=== PATIENT | female | born 1985 | race African-American/Black ===

== ENCOUNTER 2020-10-10 01:10 | Inpatient (IN) | payer MEDICAID ==
[~2020-10-10] VITALS: Ht 170.2 cm; Wt 112.3 kg
[2020-10-10 02:22] LABS: Basophils # (auto) 0.1 10 ^3/uL (0-0.2); Basophils % (auto) 1.3 % (0.0-2.0); Eosinophils # (auto) 0.1 10 ^3/uL (0-0.8); Eosinophils % (auto) 2.5 % (0.0-7.0); Hematocrit 37.6 % (36.0-46.0); Hemoglobin 11.8 g/dL (12.2-16.2); Lymphocytes # (auto) 2.5 10 ^3/uL (0.4-5.4); Lymphocytes % (auto) 48.6 % (10.0-50.0); Mean Corpuscular Hemoglobin 27.2 pg (28.0-32.0); Mean Corpuscular Hgb Conc. 31.5 g/dL (32.0-36.0); Mean Corpuscular Volume 86.4 fL (80.0-100.0); Monocytes # (auto) 0.2 10 ^3/uL (0-1.3); Monocytes % (auto) 4.5 % (0.0-12.0); Neutrophils # (auto) 2.2 10 ^3/uL (1.6-8.6); Neutrophils % (auto) 43.1 % (37.0-80.0); Nucleated Red Blood Cells % 0.3 %; Platelet Count (auto) 269 10^3/uL (140-450); Red Blood Cells 4.35 10^6/uL (4.0-5.20); Red Cell Distribution Width 18.6 % (11.8-14.3); White Blood Cell 5.1 10^3/uL (4.4-10.8)
[2020-10-10 02:25] LABS: Albumin 2.7 g/dL (3.4-5.0); BUN/Creatinine Ratio 20.9; Potassium 3.8 mmol/L (3.5-5.1)
[2020-10-10 02:30] LABS: Bilirubin, Total 2.1 mg/dL (0.2-1.0); Total Protein 6.5 g/dL (6.4-8.2)
[2020-10-10 02:33] LABS: INR 1.6 (0.9-1.15); Partial Thromboplastin Time 26.3 sec (23.0-31.2)
[2020-10-10] MEDS ORDERED: FUROSEMIDE 40 MG/4 ML VIAL IV ONE (03:30)
[2020-10-10 03:46] LABS: Urine Bacteria MOD /hpf (None Seen); Urine Blood Negative /uL (Negative); Urine Mucus FEW (None Seen); Urine Specific Gravity 1.022 (1.001-1.035); Urine WBC 55 /hpf (0 - 5)
[2020-10-10] MEDS ORDERED: ONDANSETRON HCL 4 MG/2 ML VIAL IV ONE (05:00)
[2020-10-10] MEDS ORDERED: MORPHINE SULF INJ 2 MG/ML SYRINGE 1ML IV ONE (05:00)
[2020-10-10] MEDS ORDERED: cefTRIAXone SOD 1,000 MG VL IV ONE (05:15)
[2020-10-10] MEDS ORDERED: cefTRIAXone 1GM/50ML D5W 50 ML IV ONE (05:45)
[2020-10-10] MEDS ORDERED: NITROGLYCERIN 0.4 MG SL TAB SL PRN (07:45)
[2020-10-10] MEDS ORDERED: MORPHINE SULF INJ 2 MG/ML SYRINGE 1ML IV PRN (07:45)
[2020-10-10] MEDS ORDERED: FUROSEMIDE 40 MG/4 ML VIAL IV SCH (08:03)
[2020-10-10 08:41] LABS: Basophils # (auto) 0.1 10 ^3/uL (0-0.2); Basophils % (auto) 1.3 % (0.0-2.0); Eosinophils # (auto) 0 10 ^3/uL (0-0.8); Eosinophils % (auto) 0.9 % (0.0-7.0); Hematocrit 35.2 % (36.0-46.0); Hemoglobin 11.4 g/dL (12.2-16.2); Lymphocytes # (auto) 1.7 10 ^3/uL (0.4-5.4); Lymphocytes % (auto) 40.1 % (10.0-50.0); Mean Corpuscular Hemoglobin 28.1 pg (28.0-32.0); Mean Corpuscular Hgb Conc. 32.4 g/dL (32.0-36.0); Mean Corpuscular Volume 86.8 fL (80.0-100.0); Monocytes # (auto) 0.3 10 ^3/uL (0-1.3); Monocytes % (auto) 6.8 % (0.0-12.0); Neutrophils # (auto) 2.1 10 ^3/uL (1.6-8.6); Neutrophils % (auto) 50.9 % (37.0-80.0); Nucleated Red Blood Cells % 0.3 %; Platelet Count (auto) 222 10^3/uL (140-450); Red Blood Cells 4.06 10^6/uL (4.0-5.20); Red Cell Distribution Width 18.8 % (11.8-14.3); White Blood Cell 4.2 10^3/uL (4.4-10.8)
[2020-10-10 08:55] LABS: Albumin 2.5 g/dL (3.4-5.0); Calcium 8.3 mg/dL (8.5-10.1); Magnesium 1.6 mg/dL (1.6-2.6); Potassium 3.5 mmol/L (3.5-5.1)
[2020-10-10 08:58] LABS: BUN/Creatinine Ratio 20.5; Bilirubin, Total 2.2 mg/dL (0.2-1.0)
[2020-10-10] MEDS ORDERED: POTASSIUM EFFERVESENT TAB 25 MEQ PO ONE (09:45)
[2020-10-10 10:00] VITALS: BP 137/89
[2020-10-10] MEDS ORDERED: LISINOPRIL 10 MG TAB PO SCH (10:00)
[2020-10-10] MEDS: POTASSIUM CHL 20 Meq TABLET PO SCH ×2 (10:51→22:34)
[2020-10-10 13:00] VITALS: BP 106/81
[2020-10-10] MEDS: HYDROcodone-ACET 5/325MG TAB PO PRN (14:58)
[2020-10-10] MEDS ORDERED: metOLazone 5 MG TAB PO ONE (15:45)
[2020-10-10] MEDS ORDERED: ASPI-543 PO (16:25)
[2020-10-10] MEDS ORDERED: ATOR20TA50 PO (16:25)
[2020-10-10] MEDS ORDERED: METO-169 PO (16:25)
[2020-10-10] MEDS ORDERED: FURO40TA4 PO (16:25)
[2020-10-10] MEDS ORDERED: LISI-275 PO (16:25)
[2020-10-10] MEDS ORDERED: POTA10TA51 PO (16:25)
[2020-10-10 17:00] VITALS: BP 93/74
[2020-10-10] MEDS: FUROSEMIDE 40 MG/4 ML VIAL IV SCH (17:53)
[2020-10-10] MEDS: CARVEDILOL 3.125 MG TAB PO SCH (22:34)
[2020-10-10 22:37] VITALS: BP 105/71
[2020-10-10 23:27] LABS: Alcohol, Urine < 3.0 mg/dL (0-10); Amphetamine Screen, Urine NEGATIVE (NEGATIVE); Barbiturate Scree,Urine NEGATIVE (NEGATIVE); Benzodiazephine Screen, Urine NEGATIVE (NEGATIVE); Cannabinoid Screen, Urine NEGATIVE (NEGATIVE); Cocaine Screen, Urine NEGATIVE (NEGATIVE); Opiate Scree,Urine NEGATIVE (NEGATIVE); Phencyclidine Screen, Urine NEGATIVE (NEGATIVE)
[2020-10-11 04:58] VITALS: BP 119/73
[2020-10-11] MEDS: FUROSEMIDE 40 MG/4 ML VIAL IV SCH ×2 (06:02→17:50)
[2020-10-11 09:00] VITALS: BP 130/77
[2020-10-11] MEDS: cefTRIAXone 1GM/50ML D5W 50 ML IV SCH (09:03)
[2020-10-11] MEDS: CARVEDILOL 3.125 MG TAB PO SCH ×2 (09:04→22:11)
[2020-10-11] MEDS: POTASSIUM CHL 20 Meq TABLET PO SCH ×2 (09:04→22:11)
[2020-10-11 09:18] LABS: Basophils # (auto) 0.1 10 ^3/uL (0-0.2); Basophils % (auto) 1.4 % (0.0-2.0); Eosinophils # (auto) 0.2 10 ^3/uL (0-0.8); Eosinophils % (auto) 4.3 % (0.0-7.0); Hematocrit 33.2 % (36.0-46.0); Hemoglobin 10.8 g/dL (12.2-16.2); Lymphocytes # (auto) 1.6 10 ^3/uL (0.4-5.4); Mean Corpuscular Hemoglobin 28.1 pg (28.0-32.0); Mean Corpuscular Hgb Conc. 32.6 g/dL (32.0-36.0); Mean Corpuscular Volume 86.1 fL (80.0-100.0); Monocytes # (auto) 0.3 10 ^3/uL (0-1.3); Monocytes % (auto) 7.6 % (0.0-12.0); Neutrophils # (auto) 2.1 10 ^3/uL (1.6-8.6); Neutrophils % (auto) 48.7 % (37.0-80.0); Nucleated Red Blood Cells % 0.3 %; Platelet Count (auto) 212 10^3/uL (140-450); Red Blood Cells 3.85 10^6/uL (4.0-5.20); Red Cell Distribution Width 19.1 % (11.8-14.3); White Blood Cell 4.2 10^3/uL (4.4-10.8)
[2020-10-11 09:28] LABS: Anion Gap 8 (5-15); Calcium 8.3 mg/dL (8.5-10.1); Carbon Dioxide 28 mmol/L (21-32); Chloride 103 mmol/L (98-107); Glucose 101 mg/dL (74-106); Potassium 3.5 mmol/L (3.5-5.1); Sodium 139 mmol/L (136-145)
[2020-10-11 09:31] LABS: INR 1.4 (0.9-1.15)
[2020-10-11 09:39] LABS: BUN/Creatinine Ratio 24.1; Blood Urea Nitrogen 20 mg/dL (7-18); GFR African American 100 mL/min; GFR Non-African American 83 mL/min
[2020-10-11 13:00] VITALS: BP 121/79
[2020-10-11 17:00] VITALS: BP 111/71
[2020-10-11 22:00] VITALS: BP 124/79
[2020-10-11] MEDS: MAGNESIUM OXIDE 400 MG TAB PO SCH (22:11)
[2020-10-11] MEDS: SACUBITRIL-VALSARTAN 24mg/26mg TAB PO SCH (22:11)
[2020-10-12] MEDS: HYDROcodone-ACET 5/325MG TAB PO PRN (03:15)
[2020-10-12 05:00] VITALS: BP 98/75
[2020-10-12] MEDS: FUROSEMIDE 40 MG/4 ML VIAL IV SCH (06:00)
[2020-10-12 08:40] VITALS: BP 110/67
[2020-10-12] MEDS: cefTRIAXone 1GM/50ML D5W 50 ML IV SCH (09:36)
[2020-10-12] MEDS: CARVEDILOL 3.125 MG TAB PO SCH (09:37)
[2020-10-12] MEDS: SACUBITRIL-VALSARTAN 24mg/26mg TAB PO SCH (09:37)
[2020-10-12] MEDS: POTASSIUM CHL 20 Meq TABLET PO SCH (09:38)
[2020-10-12] MEDS: MAGNESIUM OXIDE 400 MG TAB PO SCH (09:38)
[2020-10-12 12:48] VITALS: BP 106/64
[2020-10-12] MEDS ORDERED: MAGN241.4 PO (13:59)
[2020-10-12] MEDS ORDERED: CAR3125T PO (13:59)
[2020-10-12] MEDS ORDERED: SACU1TAB PO (13:59)
[2020-10-12] MEDS ORDERED: ALBUAER3 IN (14:00)
[2020-10-12] MEDS ORDERED: ALPR0.25 PO (14:24)
[2020-10-12 17:00] VITALS: BP 112/76
[2020-10-24] MEDS ORDERED: IBUP200C3 PO (10:42)
[2020-10-24] MEDS ORDERED: HYDR1TAB97 PO (10:42)
[2020-10-24] MEDS ORDERED: SACU1TAB PO (17:26)
[2020-10-24] MEDS ORDERED: METO5TAB56 PO (17:26)
[2020-10-24] MEDS ORDERED: FURO40TA4 PO (17:26)
== END 2020-10-12 17:42 | disposition home or self-care (01) | DRG 194 ==
LOC: ER 01:20 → EDBD 01:20 → TELE 01:21 → OBSVTOIN 01:21 → TELE-EAST 10:32
PROVIDERS: ADMIT Hospitalist; ATTEND Hospitalist
DX: I50.43 Acute on chronic combined systolic (congestive) and diastolic (congestive) heart failure (principal); R64 Cachexia; E66.9 Obesity, unspecified; F41.9 Anxiety disorder, unspecified; I42.9 Cardiomyopathy, unspecified; Z20.822 Contact with and (suspected) exposure to COVID-19; Z82.49 Family history of ischemic heart disease and other diseases of the circulatory system; Z95.810 Presence of automatic (implantable) cardiac defibrillator; Z68.36 Body mass index [BMI] 36.0-36.9, adult
CPT/HCPCS: 36415; 51702; 71045; 80048; 80053; 80307; 81001; 83735; 83880; 84484; 84702; 85025; 85610; 85730; 87086; 87426; 93005; 93306; 96365; 96366; 96375; G0378; G0463; J0696; J2405

== ENCOUNTER 2021-03-06 22:10 | Inpatient (IN) | payer MEDICAID ==
[~2021-03-06] VITALS: Ht 175.3 cm; Wt 114.0 kg
[~2021-03-06 22:10] MED LIST: ALBUAER3 IN; ASPI-543 PO; ATOR20TA50 PO; CAR3125T PO; FURO40TA4 PO; HYDR1TAB97 PO; IBUP200C3 PO; MAGN241.4 PO; METO5TAB5 PO; POTA10TA51 PO; SACU1TAB PO
[2021-03-06] MEDS ORDERED: FUROSEMIDE 100 MG/10ML VIAL IV ONE (23:00)
[2021-03-06] MEDS ORDERED: SPIRONOLACTONE 25 MG TAB PO ONE (23:00)
[2021-03-06 23:19] LABS: Basophils # (auto) 0.1 10 ^3/uL (0-0.2); Basophils % (auto) 1.3 % (0.0-2.0); Eosinophils # (auto) 0.1 10 ^3/uL (0-0.8); Eosinophils % (auto) 2.4 % (0.0-7.0); Hematocrit 33.3 % (36.0-46.0); Hemoglobin 10.9 g/dL (12.2-16.2); Lymphocytes # (auto) 1.3 10 ^3/uL (0.4-5.4); Lymphocytes % (auto) 29.3 % (10.0-50.0); Mean Corpuscular Hemoglobin 27.4 pg (28.0-32.0); Mean Corpuscular Hgb Conc. 32.7 g/dL (32.0-36.0); Mean Corpuscular Volume 83.9 fL (80.0-100.0); Monocytes # (auto) 0.4 10 ^3/uL (0-1.3); Monocytes % (auto) 8.8 % (0.0-12.0); Neutrophils # (auto) 2.7 10 ^3/uL (1.6-8.6); Neutrophils % (auto) 58.2 % (37.0-80.0); Nucleated Red Blood Cells % 0.2 %; Red Blood Cells 3.97 10^6/uL (4.0-5.20); White Blood Cell 4.6 10^3/uL (4.4-10.8)
[2021-03-06 23:33] LABS: Albumin 2.5 g/dL (3.4-5.0); Calcium 8.6 mg/dL (8.5-10.1); Potassium 3.2 mmol/L (3.5-5.1)
[2021-03-06 23:39] LABS: BUN/Creatinine Ratio 19.5; Bilirubin, Total 1.8 mg/dL (0.2-1.0); Total Protein 6.7 g/dL (6.4-8.2)
[2021-03-06] MEDS ORDERED: IOHEXOL 300 MG/ML 100ML BOTTLE IJ ONE (23:58)
[2021-03-07 01:10] LABS: Amphetamine Screen, Urine POSITIVE (NEGATIVE); Barbiturate Scree,Urine NEGATIVE (NEGATIVE); Cannabinoid Screen, Urine POSITIVE (NEGATIVE)
[2021-03-07 01:18] LABS: Benzodiazephine Screen, Urine NEGATIVE (NEGATIVE); Cocaine Screen, Urine NEGATIVE (NEGATIVE); Opiate Scree,Urine NEGATIVE (NEGATIVE); Phencyclidine Screen, Urine NEGATIVE (NEGATIVE)
[2021-03-07] MEDS ORDERED: POTASSIUM CHL 20 Meq TABLET PO ONE (01:30)
[2021-03-07] MEDS ORDERED: HEPARIN SODIUM (PORCINE) 5000 UNITS/ML 1ML VIAL IV ONE (02:30)
[2021-03-07] MEDS ORDERED: levoFLOXacin 500MG 100 ML IV ONE (02:30)
[2021-03-07] MEDS ORDERED: HEPARIN DRIP/D5W 100UNITS/ML 250 ML IV SCH (02:30)
[2021-03-07 03:00] LABS: Urine Bacteria FEW /hpf (None Seen); Urine Blood Negative /uL (Negative); Urine Hyaline Cast FEW /lpf (0 - 2); Urine Mucus FEW (None Seen); Urine Specific Gravity 1.028 (1.001-1.035); Urine WBC 1 /hpf (0 - 5)
[2021-03-07 03:46] LABS: INR 1.51 (0.9-1.15)
[2021-03-07] MEDS ORDERED: ONDANSETRON HCL 4 MG/2 ML VIAL IV PRN (04:45)
[2021-03-07] MEDS ORDERED: ACETAMINOPHEN 325 MG TAB PO PRN (04:45)
[2021-03-07] MEDS ORDERED: MORPHINE SULFATE INJECTION 2 MG/ML SYRG IV PRN (04:45)
[2021-03-07] MEDS: FUROSEMIDE 40 MG/4 ML VIAL IV SCH ×2 (09:53→22:22)
[2021-03-07] MEDS ORDERED: SPIRONOLACTONE 25 MG TAB PO SCH (10:00)
[2021-03-07] MEDS ORDERED: ALBUTEROL SULF HFA 90MCG INH 200DOSE IN PRN (10:30)
[2021-03-07] MEDS: ALBUMIN 25% 50 ML IV SCH ×2 (10:43→17:36)
[2021-03-07] MEDS: LORazepam 2MG/ML-1ML VIAL IV PRN (10:44)
[2021-03-07 12:42] LABS: INR 1.51 (0.9-1.15); Partial Thromboplastin Time 68.5 sec (23.6-33.0)
[2021-03-07] MEDS: HYDROcodone-ACET 5/325MG TAB PO PRN (21:45)
[2021-03-07] MEDS: ATORVASTATIN 20 MG TAB PO SCH (22:22)
[2021-03-07] MEDS: MAGNESIUM OXIDE 400 MG TAB PO SCH (22:23)
[2021-03-07] MEDS: SACUBITRIL-VALSARTAN 24mg/26mg TAB PO SCH (22:40)
[2021-03-08] MEDS: ALBUMIN 25% 50 ML IV SCH (02:12)
[2021-03-08] MEDS: FUROSEMIDE 40 MG/4 ML VIAL IV SCH ×2 (08:33→21:38)
[2021-03-08] MEDS: MAGNESIUM OXIDE 400 MG TAB PO SCH ×2 (08:33→21:38)
[2021-03-08] MEDS: SACUBITRIL-VALSARTAN 24mg/26mg TAB PO SCH ×2 (08:34→21:38)
[2021-03-08] MEDS: metOLazone 5 MG TAB PO SCH (08:34)
[2021-03-08] MEDS: ATORVASTATIN 20 MG TAB PO SCH (21:38)
[2021-03-08] MEDS: HYDROcodone-ACET 5/325MG TAB PO PRN (21:39)
[2021-03-09] MEDS: FUROSEMIDE 40 MG/4 ML VIAL IV SCH ×2 (08:52→21:36)
[2021-03-09] MEDS: SACUBITRIL-VALSARTAN 24mg/26mg TAB PO SCH ×2 (08:52→21:36)
[2021-03-09] MEDS: MAGNESIUM OXIDE 400 MG TAB PO SCH ×2 (08:53→21:37)
[2021-03-09] MEDS: metOLazone 5 MG TAB PO SCH (08:54)
[2021-03-09 09:41] LABS: Hematocrit 33.5 % (36.0-46.0); Hemoglobin 10.9 g/dL (12.2-16.2); Mean Corpuscular Hemoglobin 27.3 pg (28.0-32.0); Mean Corpuscular Hgb Conc. 32.5 g/dL (32.0-36.0); Mean Corpuscular Volume 84.1 fL (80.0-100.0); Red Blood Cells 3.99 10^6/uL (4.0-5.20); Red Cell Distribution Width 19.5 % (11.8-14.3); White Blood Cell 3.7 10^3/uL (4.4-10.8)
[2021-03-09 09:48] LABS: Band Neutrophils % (manual) 0; Basophils % (manual) 0 (0.0-2.0); Metamyelocytes % 0; Myelocytes % 0
[2021-03-09 09:49] LABS: Blast Cells 0; Promyelocytes % 0; Reactive Lymphocytes 0
[2021-03-09 09:58] LABS: Albumin 2.3 g/dL (3.4-5.0); Albumin 2.4 g/dL (3.4-5.0); Bilirubin, Direct 1.1 mg/dL (0-0.2); Calcium 8.5 mg/dL (8.5-10.1); Potassium 3.7 mmol/L (3.5-5.1)
[2021-03-09 10:01] LABS: Bilirubin, Total 1.7 mg/dL (0.2-1.0); INR 1.44 (0.9-1.15); Partial Thromboplastin Time 28.7 sec (23.6-33.0); Total Protein 6.5 g/dL (6.4-8.2)
[2021-03-09 10:02] LABS: BUN/Creatinine Ratio 19.8; Bilirubin, Total 1.8 mg/dL (0.2-1.0); Total Protein 6.5 g/dL (6.4-8.2)
[2021-03-09 11:21] LABS: Eosinophils % (manual) 3 (0-7); Lymphocytes % (manual) 46 (10.0-50.0); Monocytes % (manual) 3 (0-12)
[2021-03-09] MEDS: LORazepam 2MG/ML-1ML VIAL IV PRN (20:20)
[2021-03-09] MEDS: ATORVASTATIN 20 MG TAB PO SCH (21:36)
[2021-03-10 09:00] VITALS: BP 116/76
[2021-03-10] MEDS ORDERED: ALBUMIN 25% 50 ML IV ONE (09:30)
[2021-03-10] MEDS: FUROSEMIDE 40 MG/4 ML VIAL IV SCH (10:47)
[2021-03-10] MEDS: SACUBITRIL-VALSARTAN 24mg/26mg TAB PO SCH (10:47)
[2021-03-10] MEDS: metOLazone 5 MG TAB PO SCH (10:48)
[2021-03-10] MEDS: MAGNESIUM OXIDE 400 MG TAB PO SCH (10:48)
[2021-03-10 13:00] VITALS: BP 110/64
[2021-03-10 18:48] VITALS: BP 116/76
== END 2021-03-10 21:15 | disposition home or self-care (01) | DRG 194 ==
LOC: ER 22:10 → TELE 03-07 04:40 → TELE-WESTW 03-09 19:15
PROVIDERS: ADMIT Internal Medicine; ATTEND Internal Medicine
PROC: 0W9G3ZZ Drainage of Peritoneal Cavity, Percutaneous Approach (ICD-10-PCS; 2021-03-08)
PROC: 0W9G3ZZ Drainage of Peritoneal Cavity, Percutaneous Approach (ICD-10-PCS; principal; 2021-03-10)
DX: I11.0 Hypertensive heart disease with heart failure (principal); J96.01 Acute respiratory failure with hypoxia; R64 Cachexia; E44.0 Moderate protein-calorie malnutrition; R18.8 Other ascites; I50.33 Acute on chronic diastolic (congestive) heart failure; K76.1 Chronic passive congestion of liver; I42.9 Cardiomyopathy, unspecified; E87.6 Hypokalemia; F15.90 Other stimulant use, unspecified, uncomplicated; Z20.822 Contact with and (suspected) exposure to COVID-19; F41.9 Anxiety disorder, unspecified; F19.10 Other psychoactive substance abuse, uncomplicated; Z66 Do not resuscitate; Z82.49 Family history of ischemic heart disease and other diseases of the circulatory system; Z79.899 Other long term (current) drug therapy; Z83.3 Family history of diabetes mellitus; Z91.19 Patient's noncompliance with other medical treatment and regimen; Z95.810 Presence of automatic (implantable) cardiac defibrillator; Z68.37 Body mass index [BMI] 37.0-37.9, adult
CPT/HCPCS: 36415; 49083; 71260; 74177; 76700; 76942; 80053; 80076; 80307; 80320; 81001; 82140; 83880; 84484; 84702; 85007; 85025; 85027; 85610; 85730; 87070; 87205; 87426; 89051; 93005; 93970; 96365; 96366; 96368; 96375; 96376; 99291; G0378; J1956

== ENCOUNTER 2021-03-13 23:30 | Emergency (ER) | payer MEDICAID ==
[~2021-03-13] VITALS: Ht 172.7 cm; Wt 81.6 kg
[2021-03-13 23:53] LABS: Eosinophils # (auto) 0.1 10 ^3/uL (0-0.8); Hemoglobin 10.8 g/dL (12.2-16.2); Lymphocytes # (auto) 1.3 10 ^3/uL (0.4-5.4); Neutrophils # (auto) 1.7 10 ^3/uL (1.6-8.6); White Blood Cell 3.5 10^3/uL (4.4-10.8)
[2021-03-13 23:56] LABS: Basophils # (auto) 0 10 ^3/uL (0-0.2); Basophils % (auto) 1.2 % (0.0-2.0); Eosinophils % (auto) 3.6 % (0.0-7.0); Hematocrit 33.9 % (36.0-46.0); Lymphocytes % (auto) 36.7 % (10.0-50.0); Mean Corpuscular Hemoglobin 26.9 pg (28.0-32.0); Mean Corpuscular Volume 84.3 fL (80.0-100.0); Monocytes # (auto) 0.3 10 ^3/uL (0-1.3); Monocytes % (auto) 9.3 % (0.0-12.0); Neutrophils % (auto) 49.2 % (37.0-80.0); Nucleated Red Blood Cells % 0.2 %; Red Blood Cells 4.02 10^6/uL (4.0-5.20); Red Cell Distribution Width 19.5 % (11.8-14.3)
[2021-03-14 00:10] LABS: Albumin 2.4 g/dL (3.4-5.0); Anion Gap 6 (5-15); BUN/Creatinine Ratio 16.9; Blood Urea Nitrogen 15 mg/dL (7-18); Calcium 8.2 mg/dL (8.5-10.1); Carbon Dioxide 28 mmol/L (21-32); Chloride 103 mmol/L (98-107); GFR African American 92 mL/min; GFR Non-African American 76 mL/min; Glucose 91 mg/dL (74-106); Potassium 3.4 mmol/L (3.5-5.1); Sodium 137 mmol/L (136-145)
[2021-03-14 00:15] LABS: Alanine Aminotransferase 25 U/L (13-56); Alkaline Phosphatase 161 U/L (45-117); Aspartate Aminotransferase 42 U/L (15-37); Bilirubin, Total 1.1 mg/dL (0.2-1.0); Total Protein 6.6 g/dL (6.4-8.2)
[2021-03-14] MEDS ORDERED: SPIRONOLACTONE 25 MG TAB PO ONE (01:45)
[2021-03-14] MEDS ORDERED: FUROSEMIDE 100 MG/10ML VIAL IV ONE (01:45)
[2021-03-14 04:35] VITALS: BP 112/78
== END 2021-03-14 05:00 | disposition home or self-care (01) ==
LOC: ER 23:30
DX: I11.0 Hypertensive heart disease with heart failure (principal); I50.9 Heart failure, unspecified; I42.9 Cardiomyopathy, unspecified; Z95.0 Presence of cardiac pacemaker; Z79.82 Long term (current) use of aspirin; Z79.899 Other long term (current) drug therapy; Z79.1 Long term (current) use of non-steroidal anti-inflammatories (NSAID)
CPT/HCPCS: 36415; 80053; 80320; 82140; 83880; 84484; 85025; 93005; 96374; 99284; J1940

== ENCOUNTER 2021-04-03 05:35 | Emergency (ER) | payer MEDICAID ==
[~2021-04-03] VITALS: Ht 172.7 cm; Wt 81.6 kg
[2021-04-03 06:46] LABS: Basophils # (auto) 0.1 10 ^3/uL (0-0.2); Basophils % (auto) 2.1 % (0.0-2.0); Eosinophils # (auto) 0.1 10 ^3/uL (0-0.8); Eosinophils % (auto) 2.1 % (0.0-7.0); Hematocrit 36.4 % (36.0-46.0); Hemoglobin 11.8 g/dL (12.2-16.2); Lymphocytes # (auto) 1.6 10 ^3/uL (0.4-5.4); Lymphocytes % (auto) 39.8 % (10.0-50.0); Mean Corpuscular Hemoglobin 27.7 pg (28.0-32.0); Mean Corpuscular Hgb Conc. 32.6 g/dL (32.0-36.0); Mean Corpuscular Volume 84.9 fL (80.0-100.0); Monocytes # (auto) 0.3 10 ^3/uL (0-1.3); Monocytes % (auto) 6.7 % (0.0-12.0); Neutrophils % (auto) 49.3 % (37.0-80.0); Nucleated Red Blood Cells % 0.2 %; Red Blood Cells 4.28 10^6/uL (4.0-5.20); Red Cell Distribution Width 19.2 % (11.8-14.3)
[2021-04-03 06:52] LABS: Calcium 8.7 mg/dL (8.5-10.1); Potassium 3.3 mmol/L (3.5-5.1)
[2021-04-03 07:45] LABS: Albumin 2.9 g/dL (3.4-5.0); BUN/Creatinine Ratio 19.6; Bilirubin, Total 1.4 mg/dL (0.2-1.0); Total Protein 7.4 g/dL (6.4-8.2)
[2021-04-03 08:24] LABS: INR 1.43 (0.9-1.15); Partial Thromboplastin Time 27.6 sec (23.6-33.0)
[2021-04-03] MEDS ORDERED: FUROSEMIDE 40 MG/4 ML VIAL IV ONE (09:30)
[2021-04-03] MEDS ORDERED: POTASSIUM EFFERVESENT TAB 25 MEQ PO ONE (12:00)
[2021-04-03 12:30] VITALS: BP 138/83
== END 2021-04-03 12:59 | disposition home or self-care (01) ==
LOC: ER 05:35
DX: R18.8 Other ascites (principal); I11.0 Hypertensive heart disease with heart failure; I50.9 Heart failure, unspecified; Z95.0 Presence of cardiac pacemaker; Z20.822 Contact with and (suspected) exposure to COVID-19
CPT/HCPCS: 36415; 76700; 76942; 80053; 83880; 84702; 85025; 85610; 85730; 87426; 96374; 99285; C1729; J1940

== ENCOUNTER 2021-06-04 03:21 | Emergency (ER) | payer MEDICAID ==
[~2021-06-04] VITALS: Ht 172.7 cm; Wt 95.3 kg
[2021-06-04] MEDS ORDERED: NOREPINEPHRINE 8 MG/250ML KIT 250 ML IV SCH (03:30)
[2021-06-04] MEDS ORDERED: NOREPINEPHRINE 8 MG/250ML KIT 250 ML IV ONE (03:32)
[2021-06-04] MEDS ORDERED: PIPERACILLIN-TAZOB 3.375GM 100 ML IV ONE (03:45)
[2021-06-04] MEDS ORDERED: VANCOMYCIN PER PHARMACY 0 MG IV SCH (03:45)
[2021-06-04] MEDS ORDERED: VANCOMYCIN 1GM/250ML 250 ML IV ONE (04:00)
[2021-06-04 04:50] LABS: Lactic Acid w/Reflex 2.8 mmol/L (0.4-2.0)
[2021-06-04 04:50] LABS: Albumin 2.5 g/dL (3.4-5.0); Calcium 8.2 mg/dL (8.5-10.1); Magnesium 2.6 mg/dL (1.6-2.6); Potassium 3.9 mmol/L (3.5-5.1)
[2021-06-04 05:00] LABS: BUN/Creatinine Ratio 21.1; Bilirubin, Total 2.1 mg/dL (0.2-1.0); Total Protein 6.8 g/dL (6.4-8.2)
[2021-06-04 05:03] LABS: Urine Bacteria NONE SEEN /hpf (None Seen); Urine Blood TRACE /uL (Negative); Urine Mucus FEW (None Seen); Urine Specific Gravity 1.029 (1.001-1.035); Urine WBC 4 /hpf (0 - 5)
[2021-06-04] MEDS ORDERED: FUROSEMIDE 40 MG/4 ML VIAL IV ONE (05:15)
[2021-06-04 05:40] LABS: INR 1.6 (0.9-1.15); Partial Thromboplastin Time 26.8 sec (23.6-33.0)
[2021-06-04 07:12] LABS: Basophils # (auto) 0 10 ^3/uL (0-0.2); Eosinophils # (auto) 0 10 ^3/uL (0-0.8); Eosinophils % (auto) 0.7 % (0.0-7.0); Hematocrit 38.1 % (36.0-46.0); Hemoglobin 12.2 g/dL (12.2-16.2); Lymphocytes # (auto) 1.5 10 ^3/uL (0.4-5.4); Lymphocytes % (auto) 28.9 % (10.0-50.0); Mean Corpuscular Hemoglobin 26.9 pg (28.0-32.0); Mean Corpuscular Volume 84.1 fL (80.0-100.0); Monocytes # (auto) 0.4 10 ^3/uL (0-1.3); Monocytes % (auto) 7.7 % (0.0-12.0); Neutrophils # (auto) 3.1 10 ^3/uL (1.6-8.6); Neutrophils % (auto) 61.7 % (37.0-80.0); Nucleated Red Blood Cells % 0.1 %; Red Blood Cells 4.54 10^6/uL (4.0-5.20); White Blood Cell 5.1 10^3/uL (4.4-10.8)
[2021-06-04 14:39] VITALS: BP 125/97
[2021-06-04] MEDS ORDERED: VANCOMYCIN 1GM/250ML 250 ML IV SCH (15:00)
== END 2021-06-04 14:40 | disposition home or self-care (01) ==
LOC: ER 03:21
DX: I11.0 Hypertensive heart disease with heart failure (principal); I50.9 Heart failure, unspecified; Z20.822 Contact with and (suspected) exposure to COVID-19
CPT/HCPCS: 36415; 36600; 71045; 76942; 80053; 81001; 82805; 83605; 83690; 83735; 83880; 84484; 84702; 85610; 85730; 87040; 87426; 93005; 96365; 96366; 96367; 96375; 99285; C1729; J1940; J2543; J3370

== ENCOUNTER 2021-06-29 20:45 | Inpatient (IN) | payer MEDICAID ==
[~2021-06-29] VITALS: Ht 170.2 cm; Wt 103.0 kg
[2021-06-29] MEDS ORDERED: FUROSEMIDE 100 MG/10ML VIAL IV ONE (22:15)
[2021-06-29 23:44] LABS: Basophils # (auto) 0.1 10 ^3/uL (0-0.2); Lymphocytes # (auto) 1.5 10 ^3/uL (0.4-5.4); Monocytes # (auto) 0.4 10 ^3/uL (0-1.3); Neutrophils # (auto) 3.7 10 ^3/uL (1.6-8.6); Nucleated Red Blood Cells % 0.1 %; White Blood Cell 5.7 10^3/uL (4.4-10.8)
[2021-06-29 23:46] LABS: Eosinophils # (auto) 0.1 10 ^3/uL (0-0.8); Eosinophils % (auto) 1.1 % (0.0-7.0); Hematocrit 37.3 % (36.0-46.0); Lymphocytes % (auto) 27.1 % (10.0-50.0); Mean Corpuscular Hemoglobin 26.4 pg (28.0-32.0); Mean Corpuscular Hgb Conc. 32.2 g/dL (32.0-36.0); Mean Corpuscular Volume 82.2 fL (80.0-100.0); Monocytes % (auto) 6.6 % (0.0-12.0); Neutrophils % (auto) 64.2 % (37.0-80.0); Red Blood Cells 4.53 10^6/uL (4.0-5.20); Red Cell Distribution Width 18.3 % (11.8-14.3)
[2021-06-29 23:53] LABS: Albumin 2.8 g/dL (3.4-5.0); Calcium 8.6 mg/dL (8.5-10.1); Magnesium 2.5 mg/dL (1.6-2.6); Potassium 3.9 mmol/L (3.5-5.1)
[2021-06-30] VITALS (22 sets, daily range): BP systolic 88–138; BP diastolic 58–95
[2021-06-30] LABS: BUN/Creatinine Ratio 18.5; Bilirubin, Total 1.3 mg/dL (0.2-1.0); Total Protein 7.2 g/dL (6.4-8.2)
[2021-06-30 00:18] LABS: Urine Bacteria FEW /hpf (None Seen); Urine Blood TRACE /uL (Negative); Urine Mucus FEW (None Seen); Urine Specific Gravity 1.024 (1.001-1.035); Urine WBC 2 /hpf (0 - 5)
[2021-06-30] MEDS ORDERED: CLOPIDOGREL 300 MG TAB PO ONE (01:30)
[2021-06-30] MEDS ORDERED: ASPirin 81 mg TAB PO ONE (01:30)
[2021-06-30] MEDS ORDERED: NITROGLYCERIN 0.4 MG SL TAB SL PRN (03:00)
[2021-06-30] MEDS ORDERED: MORPHINE SULFATE INJECTION 2 MG/ML SYRG IV PRN (03:00)
[2021-06-30] MEDS ORDERED: ONDANSETRON HCL 4 MG/2 ML VIAL IV PRN (03:00)
[2021-06-30 04:11] LABS: Basophils # (auto) 0.1 10 ^3/uL (0-0.2); Eosinophils # (auto) 0 10 ^3/uL (0-0.8); Lymphocytes # (auto) 1.3 10 ^3/uL (0.4-5.4); Nucleated Red Blood Cells % 0.1 %
[2021-06-30 04:14] LABS: Basophils % (auto) 1.4 % (0.0-2.0); Eosinophils % (auto) 0.6 % (0.0-7.0); Hematocrit 33.7 % (36.0-46.0); Hemoglobin 10.7 g/dL (12.2-16.2); Lymphocytes % (auto) 24.9 % (10.0-50.0); Mean Corpuscular Hemoglobin 26.6 pg (28.0-32.0); Mean Corpuscular Hgb Conc. 31.7 g/dL (32.0-36.0); Mean Corpuscular Volume 84.1 fL (80.0-100.0); Monocytes # (auto) 0.4 10 ^3/uL (0-1.3); Monocytes % (auto) 8.3 % (0.0-12.0); Neutrophils # (auto) 3.4 10 ^3/uL (1.6-8.6); Neutrophils % (auto) 64.8 % (37.0-80.0); Red Blood Cells 4.01 10^6/uL (4.0-5.20); Red Cell Distribution Width 18.1 % (11.8-14.3); White Blood Cell 5.3 10^3/uL (4.4-10.8)
[2021-06-30] MEDS: FUROSEMIDE 40 MG/4 ML VIAL IV SCH ×2 (06:22→17:37)
[2021-06-30 09:38] LABS: INR 1.38 (0.9-1.15); Partial Thromboplastin Time 27.2 sec (23.6-33.0)
[2021-06-30 09:43] LABS: Albumin 2.7 g/dL (3.4-5.0); Calcium 8.5 mg/dL (8.5-10.1); Magnesium 2.4 mg/dL (1.6-2.6); Potassium 3.3 mmol/L (3.5-5.1)
[2021-06-30 09:48] LABS: BUN/Creatinine Ratio 23.3; Total Protein 6.7 g/dL (6.4-8.2)
[2021-06-30] MEDS: ENOXAPARIN SOD 100 MG/1 ML SYRINGE SC SCH ×2 (10:00→22:00)
[2021-06-30] MEDS ORDERED: ENOXAPARIN SOD 40 MG/0.4 ML SYRINGE SC SCH (10:00)
[2021-06-30] MEDS: ALBUMIN 25% 100 ML IV ONE ×3 (13:30→13:32)
[2021-06-30] MEDS ORDERED: traMADol HCL 50 MG TAB PO PRN (15:15)
[2021-06-30] MEDS ORDERED: ALBUMIN 25% 50 ML IV ONE ×2 (15:15→17:30)
[2021-06-30] MEDS: ALPRAZolam 0.25 MG TAB PO PRN (16:11)
[2021-07-01 05:00] VITALS: BP 118/68
[2021-07-01] MEDS: FUROSEMIDE 40 MG/4 ML VIAL IV SCH ×2 (06:00→18:32)
[2021-07-01 09:28] VITALS: BP 108/70
[2021-07-01] MEDS: ENOXAPARIN SOD 100 MG/1 ML SYRINGE SC SCH ×2 (10:00→21:42)
[2021-07-01 12:19] LABS: Calcium 7.9 mg/dL (8.5-10.1); Potassium 3.6 mmol/L (3.5-5.1)
[2021-07-01 13:00] VITALS: BP 105/65
[2021-07-01] MEDS: ALPRAZolam 0.25 MG TAB PO PRN (16:12)
[2021-07-01 17:13] VITALS: BP 115/76
[2021-07-01 22:00] VITALS: BP 112/68
[2021-07-02 05:00] VITALS: BP 119/73
[2021-07-02] MEDS: FUROSEMIDE 40 MG/4 ML VIAL IV SCH (06:00)
[2021-07-02 07:30] VITALS: BP 111/67
[2021-07-02] MEDS: ENOXAPARIN SOD 100 MG/1 ML SYRINGE SC SCH (10:00)
[2021-07-02 13:00] VITALS: BP 117/66
[2021-07-02 16:29] VITALS: BP 126/68
== END 2021-07-02 17:35 | disposition home or self-care (01) | DRG 194 ==
LOC: ER 20:45 → TELE-CENTR 06-30 02:53
PROVIDERS: ADMIT Hospitalist; ATTEND Hospitalist
PROC: 0W9G3ZZ Drainage of Peritoneal Cavity, Percutaneous Approach (ICD-10-PCS; principal; 2021-06-30)
DX: I11.0 Hypertensive heart disease with heart failure (principal); E88.09 Other disorders of plasma-protein metabolism, not elsewhere classified; R18.8 Other ascites; I50.23 Acute on chronic systolic (congestive) heart failure; E66.01 Morbid (severe) obesity due to excess calories; F41.9 Anxiety disorder, unspecified; R53.81 Other malaise; R53.83 Other fatigue; Z20.822 Contact with and (suspected) exposure to COVID-19; R31.9 Hematuria, unspecified; Z82.49 Family history of ischemic heart disease and other diseases of the circulatory system; Z83.3 Family history of diabetes mellitus; Z91.11 Patient's noncompliance with dietary regimen; Z68.35 Body mass index [BMI] 35.0-35.9, adult; Z95.810 Presence of automatic (implantable) cardiac defibrillator
CPT/HCPCS: 36415; 49083; 71045; 76705; 76942; 80048; 80053; 80061; 81001; 83735; 83880; 84484; 85025; 85610; 85730; 87426; 93005; 93306; 96365; 96375; G0378

== ENCOUNTER 2021-07-31 09:40 | Inpatient (IN) | payer MEDICAID ==
[~2021-07-31] VITALS: Ht 172.7 cm; Wt 116.8 kg
[~2021-07-31 09:40] MED LIST changes: -IBUP200C3 PO
[2021-07-31 10:48] LABS: Basophils # (auto) 0.1 10 ^3/uL (0-0.2); Eosinophils # (auto) 0.1 10 ^3/uL (0-0.8); Lymphocytes # (auto) 1.2 10 ^3/uL (0.4-5.4); Monocytes # (auto) 0.4 10 ^3/uL (0-1.3); Monocytes % (auto) 8.6 % (0.0-12.0); White Blood Cell 4.2 10^3/uL (4.4-10.8)
[2021-07-31 10:51] LABS: Basophils % (auto) 1.9 % (0.0-2.0); Eosinophils % (auto) 2.1 % (0.0-7.0); Lymphocytes % (auto) 28.8 % (10.0-50.0); Mean Corpuscular Hemoglobin 25.8 pg (28.0-32.0); Mean Corpuscular Hgb Conc. 31.5 g/dL (32.0-36.0); Neutrophils # (auto) 2.5 10 ^3/uL (1.6-8.6); Neutrophils % (auto) 58.6 % (37.0-80.0); Nucleated Red Blood Cells % 0.2 %; Red Blood Cells 4.27 10^6/uL (4.0-5.20)
[2021-07-31 11:05] LABS: Albumin 2.8 g/dL (3.4-5.0); Calcium 8.5 mg/dL (8.5-10.1); Potassium 3.1 mmol/L (3.5-5.1)
[2021-07-31 11:10] LABS: BUN/Creatinine Ratio 15.2; Bilirubin, Total 1.3 mg/dL (0.2-1.0); Total Protein 6.8 g/dL (6.4-8.2)
[2021-07-31] MEDS ORDERED: ENALAPRIL MALEATE 2.5 MG TAB PO ONE (13:45)
[2021-07-31] MEDS ORDERED: FUROSEMIDE 40 MG/4 ML VIAL IV ONE (13:45)
[2021-07-31] MEDS ORDERED: FUROSEMIDE 100 MG/10ML VIAL IV ONE (13:45)
[2021-08-01] MEDS ORDERED: NITROGLYCERIN 0.4 MG SL TAB SL PRN (03:45)
[2021-08-01] MEDS ORDERED: MORPHINE SULFATE INJECTION 2 MG/ML SYRG IV PRN (03:45)
[2021-08-01] MEDS ORDERED: ONDANSETRON HCL 4 MG/2 ML VIAL IV PRN (03:45)
[2021-08-01] MEDS: FUROSEMIDE 40 MG/4 ML VIAL IV SCH ×2 (06:32→18:17)
[2021-08-01] MEDS: ASPirin-EC 81 mg tab PO SCH (08:18)
[2021-08-01 09:30] LABS: Basophils # (auto) 0 10 ^3/uL (0-0.2); Eosinophils # (auto) 0.1 10 ^3/uL (0-0.8); Lymphocytes # (auto) 1.2 10 ^3/uL (0.4-5.4); Neutrophils # (auto) 2.5 10 ^3/uL (1.6-8.6)
[2021-08-01 09:33] LABS: Eosinophils % (auto) 1.9 % (0.0-7.0); Hematocrit 35.4 % (36.0-46.0); Hemoglobin 11.3 g/dL (12.2-16.2); Lymphocytes % (auto) 28.1 % (10.0-50.0); Mean Corpuscular Hemoglobin 26.1 pg (28.0-32.0); Mean Corpuscular Volume 81.5 fL (80.0-100.0); Monocytes # (auto) 0.4 10 ^3/uL (0-1.3); Monocytes % (auto) 10.6 % (0.0-12.0); Neutrophils % (auto) 58.4 % (37.0-80.0); Nucleated Red Blood Cells % 0.3 %; Red Blood Cells 4.34 10^6/uL (4.0-5.20); Red Cell Distribution Width 18.3 % (11.8-14.3); White Blood Cell 4.2 10^3/uL (4.4-10.8)
[2021-08-01 09:43] LABS: Calcium 8.7 mg/dL (8.5-10.1)
[2021-08-01 09:47] LABS: BUN/Creatinine Ratio 14.3; Magnesium 2.8 mg/dL (1.6-2.6)
[2021-08-01] MEDS: ENOXAPARIN SOD 40 MG/0.4 ML SYRINGE SC SCH (10:29)
[2021-08-01] MEDS: POTASSIUM CHL 10MEQ/50ML 50 ML IV SCH ×6 (15:53→23:27)
[2021-08-01 18:05] VITALS: BP_SYST 118; BP_DIAS 78; BP_DIAS 88
[2021-08-01] MEDS ORDERED: ALPRAZolam 0.5 MG TAB PO ONE (20:45)
[2021-08-01] MEDS ORDERED: HYDROcodone-ACET 5/325MG TAB PO PRN (20:45)
[2021-08-01] MEDS ORDERED: METOPROLOL TARTRATE 1MG/1ML-5ML VIAL IV PRN (20:45)
[2021-08-01] MEDS: ATORVASTATIN 20 MG TAB PO SCH (21:28)
[2021-08-01] MEDS: ACETAMINOPHEN 325 MG TAB PO PRN (21:28)
[2021-08-01 22:00] VITALS: BP 116/81
[2021-08-02 05:14] VITALS: BP 124/93
[2021-08-02 05:43] LABS: Hemoglobin 10.6 g/dL (12.2-16.2); White Blood Cell 4.2 10^3/uL (4.4-10.8)
[2021-08-02] MEDS: FUROSEMIDE 40 MG/4 ML VIAL IV SCH ×3 (05:43→17:53)
[2021-08-02 05:50] LABS: Basophils # (auto) 0.1 10 ^3/uL (0-0.2); Basophils % (auto) 1.8 % (0.0-2.0); Eosinophils # (auto) 0.1 10 ^3/uL (0-0.8); Eosinophils % (auto) 2.8 % (0.0-7.0); Hematocrit 33.2 % (36.0-46.0); Lymphocytes # (auto) 1.4 10 ^3/uL (0.4-5.4); Lymphocytes % (auto) 33.3 % (10.0-50.0); Mean Corpuscular Hemoglobin 25.9 pg (28.0-32.0); Mean Corpuscular Hgb Conc. 31.8 g/dL (32.0-36.0); Mean Corpuscular Volume 81.2 fL (80.0-100.0); Monocytes # (auto) 0.4 10 ^3/uL (0-1.3); Monocytes % (auto) 10.4 % (0.0-12.0); Neutrophils # (auto) 2.2 10 ^3/uL (1.6-8.6); Neutrophils % (auto) 51.7 % (37.0-80.0); Nucleated Red Blood Cells % 0.4 %; Red Blood Cells 4.09 10^6/uL (4.0-5.20); Red Cell Distribution Width 17.7 % (11.8-14.3)
[2021-08-02 06:02] LABS: BUN/Creatinine Ratio 17.8; Calcium 8.4 mg/dL (8.5-10.1); Potassium 3.5 mmol/L (3.5-5.1)
[2021-08-02 09:00] VITALS: BP 117/88
[2021-08-02] MEDS: ENOXAPARIN SOD 40 MG/0.4 ML SYRINGE SC SCH (10:00)
[2021-08-02] MEDS: ACETAMINOPHEN 325 MG TAB PO PRN (11:06)
[2021-08-02] MEDS: ASPirin-EC 81 mg tab PO SCH (11:07)
[2021-08-02 12:39] VITALS: BP 107/79
[2021-08-02 14:26] LABS: INR 1.34 (0.9-1.15); Partial Thromboplastin Time 27.6 sec (23.6-33.0)
[2021-08-02 17:00] VITALS: BP 118/86
[2021-08-02] MEDS: ATORVASTATIN 20 MG TAB PO SCH (21:18)
[2021-08-02 22:00] VITALS: BP 127/74
[2021-08-02] MEDS ORDERED: ALPRAZolam 0.5 MG TAB PO PRN (23:30)
[2021-08-03 04:49] VITALS: BP 115/82
[2021-08-03 05:22] LABS: Potassium 3.7 mmol/L (3.5-5.1)
[2021-08-03 05:26] LABS: Basophils # (auto) 0.1 10 ^3/uL (0-0.2); Eosinophils # (auto) 0.1 10 ^3/uL (0-0.8); Lymphocytes # (auto) 1.4 10 ^3/uL (0.4-5.4); Mean Corpuscular Hemoglobin 26.1 pg (28.0-32.0); Monocytes # (auto) 0.4 10 ^3/uL (0-1.3)
[2021-08-03 05:27] LABS: Basophils % (auto) 1.1 % (0.0-2.0); Eosinophils % (auto) 2.2 % (0.0-7.0); Hematocrit 34.7 % (36.0-46.0); Hemoglobin 11.2 g/dL (12.2-16.2); Lymphocytes % (auto) 30.8 % (10.0-50.0); Mean Corpuscular Hgb Conc. 32.2 g/dL (32.0-36.0); Mean Corpuscular Volume 81.3 fL (80.0-100.0); Neutrophils # (auto) 2.6 10 ^3/uL (1.6-8.6); Neutrophils % (auto) 56.9 % (37.0-80.0); Nucleated Red Blood Cells % 0.2 %; Red Blood Cells 4.27 10^6/uL (4.0-5.20); Red Cell Distribution Width 18.2 % (11.8-14.3); White Blood Cell 4.6 10^3/uL (4.4-10.8)
[2021-08-03 05:28] LABS: BUN/Creatinine Ratio 21.3; Calcium 8.6 mg/dL (8.5-10.1)
[2021-08-03] MEDS: FUROSEMIDE 40 MG/4 ML VIAL IV SCH ×2 (05:56→17:35)
[2021-08-03] MEDS: ASPirin-EC 81 mg tab PO SCH (08:08)
[2021-08-03 08:09] VITALS: BP 133/93
[2021-08-03 08:48] VITALS: BP 133/93
[2021-08-03] MEDS: ENOXAPARIN SOD 40 MG/0.4 ML SYRINGE SC SCH (10:00)
[2021-08-03 13:00] VITALS: BP 116/74
[2021-08-03] MEDS ORDERED: FURO40TA4 PO (15:21)
[2021-08-03] MEDS: ALBUMIN 25% 100 ML IV SCH ×2 (15:48→17:29)
[2021-08-03 17:00] VITALS: BP 109/82
[2021-08-03] MEDS ORDERED: ALBUMIN 25% 100 ML IV ONE (17:11)
[2021-08-03 18:30] VITALS: BP 116/74
== END 2021-08-03 21:00 | disposition home health service (06) | DRG 194 ==
LOC: ER 09:40 → TELE 08-01 03:43 → TELE-CENTR 08-01 17:55
PROVIDERS: ADMIT Hospitalist; ATTEND Hospitalist
PROC: 0W9G3ZZ Drainage of Peritoneal Cavity, Percutaneous Approach (ICD-10-PCS; principal; 2021-08-03)
DX: I11.0 Hypertensive heart disease with heart failure (principal); R18.8 Other ascites; I42.0 Dilated cardiomyopathy; I50.23 Acute on chronic systolic (congestive) heart failure; F41.9 Anxiety disorder, unspecified; Z20.822 Contact with and (suspected) exposure to COVID-19; R07.9 Chest pain, unspecified; Z82.49 Family history of ischemic heart disease and other diseases of the circulatory system; Z91.14 Patient's other noncompliance with medication regimen; Z95.810 Presence of automatic (implantable) cardiac defibrillator; Z83.3 Family history of diabetes mellitus
CPT/HCPCS: 36415; 49083; 71045; 76700; 76942; 80048; 80053; 83735; 83880; 84484; 84702; 85025; 85610; 85730; 87426; 93005; 96372; 96374; G0378; P9047

== ENCOUNTER 2021-09-08 02:41 | Inpatient (IN) | payer MEDICAID ==
[~2021-09-08] VITALS: Ht 175.3 cm; Wt 107.8 kg
[~2021-09-08 02:41] MED LIST changes: -SACU1TAB PO
[2021-09-08 04:07] LABS: Albumin 2.9 g/dL (3.4-5.0); BUN/Creatinine Ratio 15.1; Calcium 8.4 mg/dL (8.5-10.1); Magnesium 2.3 mg/dL (1.6-2.6); Potassium 3.9 mmol/L (3.5-5.1)
[2021-09-08 04:23] LABS: Bilirubin, Total 1.4 mg/dL (0.2-1.0); Total Protein 6.9 g/dL (6.4-8.2)
[2021-09-08 05:30] LABS: Alcohol, Urine < 3.0 mg/dL (0-10); Amphetamine Screen, Urine NEGATIVE (NEGATIVE); Barbiturate Scree,Urine NEGATIVE (NEGATIVE); Benzodiazephine Screen, Urine POSITIVE (NEGATIVE); Cocaine Screen, Urine NEGATIVE (NEGATIVE); Opiate Scree,Urine NEGATIVE (NEGATIVE); Phencyclidine Screen, Urine NEGATIVE (NEGATIVE)
[2021-09-08 05:40] LABS: Cannabinoid Screen, Urine NEGATIVE (NEGATIVE)
[2021-09-08] MEDS ORDERED: FUROSEMIDE 40 MG/4 ML VIAL IV ONE (05:45)
[2021-09-08 06:00] LABS: Urine Bacteria NONE SEEN /hpf (None Seen); Urine Blood 1+ /uL (Negative); Urine Mucus FEW (None Seen); Urine Specific Gravity 1.028 (1.001-1.035); Urine WBC 5 /hpf (0 - 5)
[2021-09-08] MEDS ORDERED: NITROGLYCERIN 0.4 MG SL TAB SL PRN (06:45)
[2021-09-08] MEDS ORDERED: MORPHINE SULFATE INJECTION 2 MG/ML SYRG IV PRN (06:45)
[2021-09-08] MEDS ORDERED: ONDANSETRON HCL 4 MG/2 ML VIAL IV PRN (06:45)
[2021-09-08 07:43] LABS: Basophils # (auto) 0.1 10 ^3/uL (0-0.2); Eosinophils # (auto) 0.1 10 ^3/uL (0-0.8); Hematocrit 34.5 % (36.0-46.0); Lymphocytes # (auto) 0.8 10 ^3/uL (0.4-5.4); Monocytes # (auto) 0.4 10 ^3/uL (0-1.3); Neutrophils # (auto) 3.1 10 ^3/uL (1.6-8.6); Nucleated Red Blood Cells % 0.2 %; White Blood Cell 4.4 10^3/uL (4.4-10.8)
[2021-09-08 07:45] LABS: Basophils % (auto) 1.5 % (0.0-2.0); Eosinophils % (auto) 1.2 % (0.0-7.0); Hemoglobin 11.2 g/dL (12.2-16.2); Lymphocytes % (auto) 19.2 % (10.0-50.0); Mean Corpuscular Hemoglobin 26.2 pg (28.0-32.0); Mean Corpuscular Hgb Conc. 32.3 g/dL (32.0-36.0); Mean Corpuscular Volume 81.1 fL (80.0-100.0); Monocytes % (auto) 8.5 % (0.0-12.0); Neutrophils % (auto) 69.6 % (37.0-80.0); Red Blood Cells 4.26 10^6/uL (4.0-5.20); Red Cell Distribution Width 18.9 % (11.8-14.3)
[2021-09-08] MEDS ORDERED: ALBU108A5 PO (10:06)
[2021-09-08] MEDS ORDERED: ACET120S38 PR (10:06)
[2021-09-08] MEDS ORDERED: ALPR0.5T PO ×2 (10:08→12:31)
[2021-09-08 10:56] LABS: INR 1.46 (0.9-1.15)
[2021-09-08] MEDS: ASPirin-EC 81 mg tab PO SCH (11:06)
[2021-09-08 12:29] VITALS: BP 110/82
[2021-09-08] MEDS ORDERED: FURO40TA4 PO (12:31)
[2021-09-08] MEDS ORDERED: ATOR20TA50 PO (12:31)
[2021-09-08] MEDS ORDERED: MAGN241.4 PO (12:31)
[2021-09-08] MEDS ORDERED: ASPI-543 PO (12:31)
[2021-09-08] MEDS ORDERED: CARV3.1240 PO (12:31)
[2021-09-08] MEDS ORDERED: POTA1TAB61 PO (12:31)
[2021-09-08] MEDS ORDERED: METO2.5T PO (12:31)
[2021-09-08] MEDS ORDERED: ALBUAER3 IN (12:31)
[2021-09-08 17:00] VITALS: BP 96/69
[2021-09-08] MEDS: FUROSEMIDE 40 MG/4 ML VIAL IV SCH (18:44)
[2021-09-08 22:00] VITALS: BP 106/73
[2021-09-08] MEDS: CARVEDILOL 3.125 MG TAB PO SCH (22:18)
[2021-09-08] MEDS: ATORVASTATIN 20 MG TAB PO SCH (22:18)
[2021-09-08] MEDS: MAGNESIUM OXIDE 400 MG TAB PO SCH (22:18)
[2021-09-08] MEDS: MORPHINE SULFATE 4 MG/ML SYR/VIAL IV PRN (22:19)
[2021-09-09 05:00] VITALS: BP 106/70
[2021-09-09 06:38] LABS: Basophils # (auto) 0.1 10 ^3/uL (0-0.2); Basophils % (auto) 1.7 % (0.0-2.0); Eosinophils # (auto) 0.1 10 ^3/uL (0-0.8); Eosinophils % (auto) 2.5 % (0.0-7.0); Hematocrit 32.5 % (36.0-46.0); Hemoglobin 10.8 g/dL (12.2-16.2); Lymphocytes # (auto) 1.2 10 ^3/uL (0.4-5.4); Lymphocytes % (auto) 31.6 % (10.0-50.0); Mean Corpuscular Hgb Conc. 33.1 g/dL (32.0-36.0); Mean Corpuscular Volume 81.5 fL (80.0-100.0); Monocytes # (auto) 0.4 10 ^3/uL (0-1.3); Monocytes % (auto) 10.8 % (0.0-12.0); Neutrophils # (auto) 2.1 10 ^3/uL (1.6-8.6); Neutrophils % (auto) 53.4 % (37.0-80.0); Nucleated Red Blood Cells % 0.2 %; Red Blood Cells 3.99 10^6/uL (4.0-5.20); Red Cell Distribution Width 18.9 % (11.8-14.3); White Blood Cell 3.9 10^3/uL (4.4-10.8)
[2021-09-09 06:55] LABS: Calcium 8.4 mg/dL (8.5-10.1); Potassium 3.7 mmol/L (3.5-5.1)
[2021-09-09 07:04] LABS: BUN/Creatinine Ratio 21.2
[2021-09-09 09:00] VITALS: BP 101/62
[2021-09-09] MEDS: POTASSIUM CHL 10 Meq TABLET PO SCH ×2 (09:34→09:36)
[2021-09-09] MEDS: MAGNESIUM OXIDE 400 MG TAB PO SCH ×2 (09:34→22:17)
[2021-09-09] MEDS: ENOXAPARIN SOD 40 MG/0.4 ML SYRINGE SC SCH ×2 (09:34→09:38)
[2021-09-09] MEDS: ASPirin-EC 81 mg tab PO SCH (09:35)
[2021-09-09] MEDS: CARVEDILOL 3.125 MG TAB PO SCH ×2 (09:38→22:00)
[2021-09-09 13:00] VITALS: BP 95/60
[2021-09-09 16:57] VITALS: BP 97/63
[2021-09-09] MEDS: FUROSEMIDE 40 MG/4 ML VIAL IV SCH (18:00)
[2021-09-09 21:59] VITALS: BP 95/75
[2021-09-09] MEDS: ATORVASTATIN 20 MG TAB PO SCH (22:17)
[2021-09-09] MEDS: MORPHINE SULFATE 4 MG/ML SYR/VIAL IV PRN (23:45)
[2021-09-10 05:31] VITALS: BP 106/65
[2021-09-10] MEDS: FUROSEMIDE 40 MG/4 ML VIAL IV SCH ×2 (06:27→17:44)
[2021-09-10] MEDS: ASPirin-EC 81 mg tab PO SCH (08:35)
[2021-09-10 09:00] VITALS: BP 110/70
[2021-09-10 09:19] LABS: Hepatitis B Surface Antibody Negative (Negative)
[2021-09-10 09:46] LABS: Hepatitis A Total Antibody Negative (Negative)
[2021-09-10] MEDS: CARVEDILOL 3.125 MG TAB PO SCH (10:12)
[2021-09-10] MEDS: ENOXAPARIN SOD 40 MG/0.4 ML SYRINGE SC SCH (10:13)
[2021-09-10] MEDS: POTASSIUM CHL 10 Meq TABLET PO SCH (10:13)
[2021-09-10] MEDS: MAGNESIUM OXIDE 400 MG TAB PO SCH (10:13)
[2021-09-10 11:31] LABS: Hepatitis C Antibody Negative (Negative)
[2021-09-10 13:00] VITALS: BP 117/69
[2021-09-10 15:45] VITALS: BP 117/69
[2021-09-10 17:00] VITALS: BP 105/85
== END 2021-09-10 19:00 | disposition home or self-care (01) | DRG 194 ==
LOC: ER 02:44 → TELE 06:44 → TELE-EAST 12:25
PROVIDERS: ADMIT Hospitalist; ATTEND Internal Medicine
PROC: 0W9G3ZX Drainage of Peritoneal Cavity, Percutaneous Approach, Diagnostic (ICD-10-PCS; 2021-09-08)
PROC: 0W9G3ZZ Drainage of Peritoneal Cavity, Percutaneous Approach (ICD-10-PCS; principal; 2021-09-10)
DX: I11.0 Hypertensive heart disease with heart failure (principal); R18.8 Other ascites; I42.0 Dilated cardiomyopathy; I50.23 Acute on chronic systolic (congestive) heart failure; Z20.822 Contact with and (suspected) exposure to COVID-19; E66.9 Obesity, unspecified; F41.9 Anxiety disorder, unspecified; F12.90 Cannabis use, unspecified, uncomplicated; Z79.899 Other long term (current) drug therapy; Z82.3 Family history of stroke; Z82.49 Family history of ischemic heart disease and other diseases of the circulatory system; Z83.3 Family history of diabetes mellitus; Z95.810 Presence of automatic (implantable) cardiac defibrillator; Z68.35 Body mass index [BMI] 35.0-35.9, adult
CPT/HCPCS: 36415; 71045; 76700; 76942; 80048; 80053; 80307; 81001; 82140; 83735; 83880; 84443; 84484; 85025; 85610; 86704; 86706; 86708; 86803; 87340; 87426; 93005; 96374; 96375; G0378

== ENCOUNTER 2022-02-17 20:30 | Inpatient (IN) | payer MEDICAID ==
[~2022-02-17] VITALS: Ht 172.7 cm; Wt 114.5 kg
[~2022-02-17 20:30] MED LIST changes: +ALBU108A5 PO; +ALPR0.5T PO; +CARV3.1240 PO; +METO2.5T PO; +POTA1TAB61 PO
[2022-02-18] VITALS (39 sets, daily range): BP systolic 66–132; BP diastolic 33–91
[2022-02-18 00:05] LABS: Basophils # (auto) 0.1 10 ^3/uL (0-0.2); Basophils % (auto) 1.2 % (0.0-2.0); Eosinophils # (auto) 0 10 ^3/uL (0-0.8); Eosinophils % (auto) 1.1 % (0.0-7.0); Hematocrit 37.6 % (36.0-46.0); Hemoglobin 11.8 g/dL (12.2-16.2); Lymphocytes # (auto) 0.7 10 ^3/uL (0.4-5.4); Lymphocytes % (auto) 15.9 % (10.0-50.0); Mean Corpuscular Hemoglobin 26.4 pg (28.0-32.0); Mean Corpuscular Hgb Conc. 31.3 g/dL (32.0-36.0); Mean Corpuscular Volume 84.4 fL (80.0-100.0); Monocytes # (auto) 0.3 10 ^3/uL (0-1.3); Monocytes % (auto) 6.1 % (0.0-12.0); Neutrophils # (auto) 3.4 10 ^3/uL (1.6-8.6); Neutrophils % (auto) 75.7 % (37.0-80.0); Nucleated Red Blood Cells % 0.2 %; Red Blood Cells 4.45 10^6/uL (4.0-5.20); Red Cell Distribution Width 19.5 % (11.8-14.3); White Blood Cell 4.4 10^3/uL (4.4-10.8)
[2022-02-18 00:20] LABS: Albumin 2.9 g/dL (3.4-5.0); BUN/Creatinine Ratio 22.9; Calcium 8.7 mg/dL (8.5-10.1); Potassium 3.3 mmol/L (3.5-5.1)
[2022-02-18 00:23] LABS: Bilirubin, Total 1.9 mg/dL (0.2-1.0); Total Protein 7.3 g/dL (6.4-8.2)
[2022-02-18] MEDS: POTASSIUM CHL 20MEQ/100ML 100 ML IV SCH ×2 (02:00→22:00)
[2022-02-18] MEDS ORDERED: MORPHINE SULFATE INJ 2 MG/ml SYRG IV ONE (02:30)
[2022-02-18 04:43] LABS: Urine Bacteria NONE SEEN /hpf (None Seen); Urine Blood TRACE /uL (Negative); Urine Specific Gravity 1.027 (1.001-1.035); Urine WBC 2 /hpf (0 - 5)
[2022-02-18] MEDS ORDERED: ONDANSETRON HCL 4 MG/2 ML VIAL IV PRN (05:30)
[2022-02-18] MEDS ORDERED: FUROSEMIDE 40 MG/4 ML VIAL IV ONE (05:30)
[2022-02-18] MEDS ORDERED: MORPHINE SULFATE INJ 2 MG/ml SYRG IV PRN (05:30)
[2022-02-18] MEDS ORDERED: ALBUTEROL SULF 2.5 MG/0.5ML(0.5%) NEB SOLN NEB PRN (05:30)
[2022-02-18] MEDS ORDERED: TEMAZEPAM 15 MG CAP PO PRN (05:30)
[2022-02-18] MEDS ORDERED: NITROGLYCERIN 0.4 MG SL TAB SL PRN (05:30)
[2022-02-18] MEDS: ENOXAPARIN SOD 40 MG/0.4 ML SYRINGE SC SCH (10:00)
[2022-02-18] MEDS: ASPirin 81 mg TAB PO SCH (10:00)
[2022-02-18 10:22] LABS: INR 1.39 (0.9-1.15); Partial Thromboplastin Time 28.5 sec (24.6-33.4)
[2022-02-18] MEDS ORDERED: ALBUMIN 25% 100 ML IV ONE ×3 (11:15→17:00)
[2022-02-18] MEDS: PANTOPRAZOLE 40 MG TAB PO SCH (12:19)
[2022-02-18] MEDS: CARVEDILOL 3.125 MG TAB PO SCH ×2 (12:19→22:00)
[2022-02-18] MEDS ORDERED: LIDOCAINE 2%HCL (LOCAL ANESTH.) INJ 10ml MDV ONE (14:12)
[2022-02-18] MEDS ORDERED: SODIUM CHLORIDE 0.9% 250 ML IV ONE (15:30)
[2022-02-18] MEDS ORDERED: ALBUMIN 5% 50 ML IV ONE (15:45)
[2022-02-18] MEDS ORDERED: DOPamine 1600MCG/ML D5W 250 ML IV ONE (16:01)
[2022-02-18] MEDS: DOPamine 1600MCG/ML D5W 250 ML IV SCH (16:30)
[2022-02-18] MEDS ORDERED: FUROSEMIDE 20 MG/2 ML VIAL IV SCH (18:00)
[2022-02-18] MEDS ORDERED: ATORVASTATIN 20 MG TAB PO SCH (22:00)
[2022-02-18 22:31] LABS: Basophils # (auto) 0 10 ^3/uL (0-0.2); Eosinophils # (auto) 0 10 ^3/uL (0-0.8); Lymphocytes # (auto) 0.5 10 ^3/uL (0.4-5.4); Monocytes # (auto) 0.4 10 ^3/uL (0-1.3); Neutrophils # (auto) 3.2 10 ^3/uL (1.6-8.6); White Blood Cell 4.2 10^3/uL (4.4-10.8)
[2022-02-18 22:33] LABS: Basophils % (auto) 0.6 % (0.0-2.0); Eosinophils % (auto) 0.1 % (0.0-7.0); Hematocrit 38.2 % (36.0-46.0); Hemoglobin 11.9 g/dL (12.2-16.2); Lymphocytes % (auto) 13.2 % (10.0-50.0); Mean Corpuscular Hemoglobin 26.6 pg (28.0-32.0); Mean Corpuscular Hgb Conc. 31.1 g/dL (32.0-36.0); Mean Corpuscular Volume 85.5 fL (80.0-100.0); Monocytes % (auto) 8.4 % (0.0-12.0); Neutrophils % (auto) 77.7 % (37.0-80.0); Nucleated Red Blood Cells % 0.1 %; Red Blood Cells 4.46 10^6/uL (4.0-5.20); Red Cell Distribution Width 19.9 % (11.8-14.3)
[2022-02-18 22:48] LABS: Albumin 2.7 g/dL (3.4-5.0); Calcium 8.2 mg/dL (8.5-10.1); Potassium 3.5 mmol/L (3.5-5.1)
[2022-02-18 22:50] LABS: Bilirubin, Total 3.1 mg/dL (0.2-1.0); Total Protein 6.8 g/dL (6.4-8.2)
[2022-02-19] VITALS (98 sets, daily range): BP systolic 97–131; BP diastolic 67–97
[2022-02-19] MEDS: ALPRAZolam 0.5 MG TAB PO PRN ×2 (01:55→10:49)
[2022-02-19] MEDS: DOPamine 1600MCG/ML D5W 250 ML IV SCH (02:24)
[2022-02-19 05:01] LABS: Basophils # (auto) 0 10 ^3/uL (0-0.2); Eosinophils # (auto) 0 10 ^3/uL (0-0.8); Eosinophils % (auto) 0.8 % (0.0-7.0); Hematocrit 35.9 % (36.0-46.0); Hemoglobin 11.4 g/dL (12.2-16.2); Lymphocytes # (auto) 0.8 10 ^3/uL (0.4-5.4); Mean Corpuscular Hemoglobin 27.2 pg (28.0-32.0); Mean Corpuscular Hgb Conc. 31.8 g/dL (32.0-36.0); Mean Corpuscular Volume 85.5 fL (80.0-100.0); Monocytes # (auto) 0.4 10 ^3/uL (0-1.3); Monocytes % (auto) 10.6 % (0.0-12.0); Neutrophils # (auto) 2.9 10 ^3/uL (1.6-8.6); Neutrophils % (auto) 69.6 % (37.0-80.0); Nucleated Red Blood Cells % 0.4 %; Red Cell Distribution Width 19.5 % (11.8-14.3); White Blood Cell 4.2 10^3/uL (4.4-10.8)
[2022-02-19 05:14] LABS: INR 1.5 (0.9-1.15); Partial Thromboplastin Time 28.4 sec (24.6-33.4)
[2022-02-19 05:17] LABS: Albumin 2.7 g/dL (3.4-5.0); Calcium 8.4 mg/dL (8.5-10.1); Potassium 3.9 mmol/L (3.5-5.1)
[2022-02-19 05:21] LABS: BUN/Creatinine Ratio 17.9; Bilirubin, Total 2.4 mg/dL (0.2-1.0); Total Protein 6.8 g/dL (6.4-8.2)
[2022-02-19 05:30] LABS: Bilirubin, Direct 1.5 mg/dL (0-0.2)
[2022-02-19] MEDS ORDERED: BUMETANIDE 2.5mg/10ml (0.25 mg/ml) INJ IV SCH (06:00)
[2022-02-19 08:36] LABS: Magnesium 1.8 mg/dL (1.6-2.6); Phosphorus 4.2 mg/dL (2.5-4.90)
[2022-02-19] MEDS: metOLazone 5 MG TAB PO SCH ×2 (09:22→10:00)
[2022-02-19] MEDS: PANTOPRAZOLE 40 MG TAB PO SCH (09:50)
[2022-02-19] MEDS: CARVEDILOL 3.125 MG TAB PO SCH (09:50)
[2022-02-19] MEDS: ASPirin 81 mg TAB PO SCH (09:51)
[2022-02-19] MEDS: ENOXAPARIN SOD 40 MG/0.4 ML SYRINGE SC SCH (09:51)
[2022-02-19] MEDS: BUMETANIDE 2.5mg/10ml (0.25 mg/ml) INJ IV SCH ×2 (09:54→18:29)
[2022-02-19] MEDS ORDERED: ACETAMINOPHEN 325 MG TAB PO PRN (11:00)
[2022-02-19] MEDS ORDERED: LIDOCAINE 2% (LOCAL ANESTH.) PF 5ml SDV ONE (14:28)
[2022-02-19] MEDS ORDERED: ALBUMIN 25% 100 ML IV ONE ×2 (15:00→15:45)
[2022-02-19] MEDS ORDERED: ALBUMIN 25% 50 ML IV ONE (15:45)
[2022-02-19] MEDS: NOREPINEPHRINE 8 MG/250ML KIT 250 ML IV SCH (16:32)
[2022-02-19] MEDS ORDERED: HYDROcodone-ACET 5/325MG TAB PO PRN (19:15)
[2022-02-19] MEDS ORDERED: ALPRAZolam 0.5 MG TAB PO PRN (19:15)
[2022-02-19] MEDS ORDERED: MORPHINE SULFATE INJ 2 MG/ml SYRG IV PRN (21:30)
[2022-02-19] MEDS ORDERED: ATORVASTATIN 20 MG TAB PO SCH (22:00)
[2022-02-19] MEDS ORDERED: ALBUTEROL SULF HFA 90MCG INH 200DOSE IN SCH (22:00)
[2022-02-19] MEDS ORDERED: ALPRAZolam 0.5 MG TAB PO SCH (22:00)
[2022-02-19] MEDS ORDERED: CARVEDILOL 3.125 MG TAB PO SCH ×2 (22:00)
[2022-02-19] MEDS ORDERED: MAGNESIUM OXIDE 400 MG TAB PO SCH (22:00)
[2022-02-19] MEDS: MAGNESIUM OXIDE 400 MG TAB PO SCH (22:01)
[2022-02-19] MEDS: ATORVASTATIN 20 MG TAB PO SCH (22:01)
[2022-02-20] VITALS (77 sets, daily range): BP systolic 96–128; BP diastolic 61–94
[2022-02-20 05:44] LABS: Bilirubin, Direct 1.2 mg/dL (0-0.2)
[2022-02-20 05:47] LABS: Bilirubin, Total 2.4 mg/dL (0.2-1.0); Total Protein 6.4 g/dL (6.4-8.2)
[2022-02-20 06:58] LABS: Alcohol, Urine < 3.0 mg/dL (0-10); Amphetamine Screen, Urine NEGATIVE (NEGATIVE); Barbiturate Scree,Urine NEGATIVE (NEGATIVE); Benzodiazephine Screen, Urine POSITIVE (NEGATIVE); Cannabinoid Screen, Urine NEGATIVE (NEGATIVE); Cocaine Screen, Urine NEGATIVE (NEGATIVE); Opiate Scree,Urine NEGATIVE (NEGATIVE); Phencyclidine Screen, Urine NEGATIVE (NEGATIVE)
[2022-02-20] MEDS ORDERED: ASPirin-EC 81 mg tab PO SCH (08:00)
[2022-02-20 09:18] LABS: Albumin 3.1 g/dL (3.4-5.0); Calcium 8.6 mg/dL (8.5-10.1); Potassium 3.2 mmol/L (3.5-5.1)
[2022-02-20 09:22] LABS: BUN/Creatinine Ratio 21.9; Bilirubin, Total 2.4 mg/dL (0.2-1.0); Total Protein 6.5 g/dL (6.4-8.2)
[2022-02-20] MEDS ORDERED: metOLazone 5 MG TAB PO SCH (10:00)
[2022-02-20] MEDS ORDERED: FUROSEMIDE 40 MG TAB PO SCH ×2 (10:00)
[2022-02-20] MEDS: NOREPINEPHRINE 8 MG/250ML KIT 250 ML IV SCH (11:00)
[2022-02-20] MEDS: PANTOPRAZOLE 40 MG TAB PO SCH (11:11)
[2022-02-20] MEDS: ASPirin-EC 81 mg tab PO SCH (11:11)
[2022-02-20] MEDS: MAGNESIUM OXIDE 400 MG TAB PO SCH ×2 (11:11→21:54)
[2022-02-20] MEDS: ENOXAPARIN SOD 40 MG/0.4 ML SYRINGE SC SCH (11:11)
[2022-02-20 21:19] LABS: BUN/Creatinine Ratio 20.7; Calcium 8.4 mg/dL (8.5-10.1); Magnesium 1.8 mg/dL (1.6-2.6); Potassium 3.2 mmol/L (3.5-5.1)
[2022-02-20] MEDS: ATORVASTATIN 20 MG TAB PO SCH (21:54)
[2022-02-20] MEDS ORDERED: POTASSIUM CHL 20 Meq TABLET PO ONE (22:30)
[2022-02-21] VITALS (17 sets, daily range): BP systolic 96–121; BP diastolic 68–85
[2022-02-21 06:02] LABS: BUN/Creatinine Ratio 20.3; Calcium 8.8 mg/dL (8.5-10.1); Potassium 3.6 mmol/L (3.5-5.1)
[2022-02-21 08:03] LABS: Basophils # (auto) 0.1 10 ^3/uL (0-0.2); Basophils % (auto) 1.7 % (0.0-2.0); Eosinophils # (auto) 0.1 10 ^3/uL (0-0.8); Eosinophils % (auto) 2.6 % (0.0-7.0); Hematocrit 38.5 % (36.0-46.0); Hemoglobin 12.6 g/dL (12.2-16.2); Lymphocytes % (auto) 29.3 % (10.0-50.0); Mean Corpuscular Hemoglobin 27.9 pg (28.0-32.0); Mean Corpuscular Hgb Conc. 32.8 g/dL (32.0-36.0); Mean Corpuscular Volume 85.1 fL (80.0-100.0); Monocytes # (auto) 0.3 10 ^3/uL (0-1.3); Monocytes % (auto) 9.9 % (0.0-12.0); Neutrophils # (auto) 1.9 10 ^3/uL (1.6-8.6); Neutrophils % (auto) 56.5 % (37.0-80.0); Nucleated Red Blood Cells % 0.5 %; Red Blood Cells 4.52 10^6/uL (4.0-5.20); Red Cell Distribution Width 19.2 % (11.8-14.3); White Blood Cell 3.4 10^3/uL (4.4-10.8)
[2022-02-21] MEDS: NOREPINEPHRINE 8 MG/250ML KIT 250 ML IV SCH (11:00)
[2022-02-21] MEDS: ENOXAPARIN SOD 40 MG/0.4 ML SYRINGE SC SCH (12:30)
[2022-02-21] MEDS: PANTOPRAZOLE 40 MG TAB PO SCH (12:30)
[2022-02-21] MEDS: MAGNESIUM OXIDE 400 MG TAB PO SCH ×2 (12:30→21:41)
[2022-02-21] MEDS: ASPirin-EC 81 mg tab PO SCH (12:30)
[2022-02-21] MEDS: ATORVASTATIN 20 MG TAB PO SCH (21:41)
[2022-02-22] VITALS (7 sets, daily range): BP systolic 98–113; BP diastolic 77–88
[2022-02-22] MEDS: ENOXAPARIN SOD 40 MG/0.4 ML SYRINGE SC SCH (08:35)
[2022-02-22] MEDS: ASPirin-EC 81 mg tab PO SCH (08:35)
[2022-02-22] MEDS: MAGNESIUM OXIDE 400 MG TAB PO SCH (08:35)
[2022-02-22] MEDS: PANTOPRAZOLE 40 MG TAB PO SCH (08:35)
[2022-02-22] MEDS ORDERED: CARVEDILOL 3.125 MG TAB PO SCH (10:00)
[2022-02-22] MEDS ORDERED: ALBUMIN 25% 100 ML IV ONE (10:15)
[2022-02-22] MEDS: NOREPINEPHRINE 8 MG/250ML KIT 250 ML IV SCH (11:00)
[2022-02-22] MEDS ORDERED: BUMETANIDE 1 MG TAB PO SCH (18:00)
[2022-02-23] MEDS ORDERED: metOLazone 5 MG TAB PO SCH (10:00)
== END 2022-02-22 18:56 | disposition home health service (06) | DRG 194 ==
LOC: ER 20:30 → EDBD 20:30 → TELE 02-18 05:18 → TELE-WESTW 02-18 08:54 → DOU IN ICU 02-18 16:06 → ICU CENTRL 02-19 19:19 → TELE-CENTR 02-21 14:57
PROVIDERS: ADMIT Nurse Practitioner; ATTEND Hospitalist
PROC: 4B02XTZ Measurement of Cardiac Defibrillator, External Approach (ICD-10-PCS; principal; 2022-02-18)
PROC: 0W9G3ZZ Drainage of Peritoneal Cavity, Percutaneous Approach (ICD-10-PCS; 2022-02-18)
PROC: 0W9G3ZZ Drainage of Peritoneal Cavity, Percutaneous Approach (ICD-10-PCS; 2022-02-19)
DX: I11.0 Hypertensive heart disease with heart failure (principal); I47.2 Ventricular tachycardia; K72.90 Hepatic failure, unspecified without coma; E44.0 Moderate protein-calorie malnutrition; I42.0 Dilated cardiomyopathy; R18.8 Other ascites; I50.43 Acute on chronic combined systolic (congestive) and diastolic (congestive) heart failure; F41.9 Anxiety disorder, unspecified; E66.01 Morbid (severe) obesity due to excess calories; E87.6 Hypokalemia; I34.0 Nonrheumatic mitral (valve) insufficiency; I36.1 Nonrheumatic tricuspid (valve) insufficiency; J98.4 Other disorders of lung; E11.9 Type 2 diabetes mellitus without complications; F15.10 Other stimulant abuse, uncomplicated; K74.60 Unspecified cirrhosis of liver; F10.10 Alcohol abuse, uncomplicated; Y90.9 Presence of alcohol in blood, level not specified; Z20.822 Contact with and (suspected) exposure to COVID-19; R79.89 Other specified abnormal findings of blood chemistry; Z82.3 Family history of stroke; Z83.3 Family history of diabetes mellitus; Z95.810 Presence of automatic (implantable) cardiac defibrillator; Z82.49 Family history of ischemic heart disease and other diseases of the circulatory system; Z79.84 Long term (current) use of oral hypoglycemic drugs; Z79.899 Other long term (current) drug therapy; Z68.38 Body mass index [BMI] 38.0-38.9, adult; Z91.19 Patient's noncompliance with other medical treatment and regimen; Z91.14 Patient's other noncompliance with medication regimen
CPT/HCPCS: 36415; 71045; 76705; 76942; 80048; 80053; 80076; 80307; 81001; 82248; 83036; 83735; 83880; 84100; 84484; 85025; 85610; 85730; 87081; 87205; 89051; 93005; 93306; 96374; 96375; C1729; G0378; J2001; J2405; J3480; P9047

== ENCOUNTER 2022-02-23 05:21 | Inpatient (IN) | payer MEDICAID ==
[~2022-02-23] VITALS: Ht 172.7 cm; Wt 106.4 kg
[2022-02-23] VITALS (11 sets, daily range): BP systolic 74–103; BP diastolic 41–54
[2022-02-23] MEDS ORDERED: ACETAMINOPHEN 325 MG TAB PO ONE (06:00)
[2022-02-23 06:45] LABS: Basophils # (auto) 0 10 ^3/uL (0-0.2); Basophils % (auto) 0.3 % (0.0-2.0); Eosinophils # (auto) 0 10 ^3/uL (0-0.8); Eosinophils % (auto) 0.1 % (0.0-7.0); Hematocrit 39.2 % (36.0-46.0); Hemoglobin 12.4 g/dL (12.2-16.2); Lymphocytes # (auto) 0.3 10 ^3/uL (0.4-5.4); Lymphocytes % (auto) 9.6 % (10.0-50.0); Mean Corpuscular Hemoglobin 26.6 pg (28.0-32.0); Mean Corpuscular Hgb Conc. 31.7 g/dL (32.0-36.0); Mean Corpuscular Volume 83.9 fL (80.0-100.0); Monocytes # (auto) 0.1 10 ^3/uL (0-1.3); Neutrophils # (auto) 2.5 10 ^3/uL (1.6-8.6); Nucleated Red Blood Cells % 1.1 %; Red Blood Cells 4.67 10^6/uL (4.0-5.20); Red Cell Distribution Width 19.3 % (11.8-14.3); White Blood Cell 2.9 10^3/uL (4.4-10.8)
[2022-02-23 07:00] LABS: INR 1.51 (0.9-1.15); Partial Thromboplastin Time 28.2 sec (24.6-33.4)
[2022-02-23 07:02] LABS: Albumin 2.7 g/dL (3.4-5.0); Calcium 8.2 mg/dL (8.5-10.1); Potassium 3.7 mmol/L (3.5-5.1)
[2022-02-23 07:08] LABS: BUN/Creatinine Ratio 16.3; Bilirubin, Total 1.7 mg/dL (0.2-1.0); Magnesium 1.9 mg/dL (1.6-2.6)
[2022-02-23 08:10] LABS: Urine Bacteria NONE SEEN /hpf (None Seen); Urine Blood 3+ /uL (Negative); Urine Specific Gravity 1.014 (1.001-1.035); Urine WBC 4 /hpf (0 - 5)
[2022-02-23] MEDS ORDERED: ENOXAPARIN SOD 100 MG/1 ML SYRINGE SC ONE (09:00)
[2022-02-23] MEDS ORDERED: FUROSEMIDE 40 MG/4 ML VIAL IV ONE (09:00)
[2022-02-23] MEDS ORDERED: ACETAMINOPHEN 325 MG TAB PO PRN (09:45)
[2022-02-23] MEDS ORDERED: ONDANSETRON HCL 4 MG/2 ML VIAL IV ONE (09:45)
[2022-02-23] MEDS ORDERED: DOCUSATE SOD 100 MG CAP PO PRN (09:45)
[2022-02-23] MEDS ORDERED: MORPHINE SULFATE INJ 2 MG/ml SYRG IV ONE (09:45)
[2022-02-23] MEDS ORDERED: ONDANSETRON HCL 4 MG/2 ML VIAL IV PRN (09:45)
[2022-02-23] MEDS: NOREPINEPHRINE 8 MG/250ML KIT 250 ML IV SCH ×2 (09:45→21:25)
[2022-02-23] MEDS ORDERED: MORPHINE SULFATE INJ 2 MG/ml SYRG IV PRN (09:45)
[2022-02-23] MEDS: ENOXAPARIN SOD 40 MG/0.4 ML SYRINGE SC SCH (10:00)
[2022-02-23] MEDS ORDERED: FUROSEMIDE 100 MG/10ML VIAL IV ONE (10:00)
[2022-02-23] MEDS ORDERED: DOBUTamine 1000MCG/ML 250 ML IV ONE (10:30)
[2022-02-23 11:03] LABS: Amphetamine Screen, Urine NEGATIVE (NEGATIVE); Barbiturate Scree,Urine NEGATIVE (NEGATIVE); Benzodiazephine Screen, Urine NEGATIVE (NEGATIVE); Cannabinoid Screen, Urine NEGATIVE (NEGATIVE); Cocaine Screen, Urine NEGATIVE (NEGATIVE); Opiate Scree,Urine NEGATIVE (NEGATIVE); Phencyclidine Screen, Urine NEGATIVE (NEGATIVE)
[2022-02-23] MEDS: cefTRIAXone 1GM/50ML D5W 50 ML IV SCH (13:51)
[2022-02-23] MEDS ORDERED: FUROSEMIDE INJECTION 100 MG in D5W 5% 100 ML IV SCH (14:30)
[2022-02-23] MEDS ORDERED: BUMETANIDE 2.5mg/10ml (0.25 mg/ml) INJ IV SCH (18:00)
[2022-02-23] MEDS ORDERED: MILRINONE 20MG/100ML 100 ML IV SCH (18:30)
[2022-02-24] VITALS (81 sets, daily range): BP systolic 78–117; BP diastolic 34–79
[2022-02-24] MEDS: HYDROcodone-ACET 5/325MG TAB PO PRN ×2 (01:25→15:54)
[2022-02-24 04:55] LABS: Basophils # (auto) 0 10 ^3/uL (0-0.2); Basophils % (auto) 0.2 % (0.0-2.0); Eosinophils # (auto) 0 10 ^3/uL (0-0.8); Eosinophils % (auto) 0.1 % (0.0-7.0); Hematocrit 37.8 % (36.0-46.0); Lymphocytes # (auto) 0.6 10 ^3/uL (0.4-5.4); Lymphocytes % (auto) 9.4 % (10.0-50.0); Mean Corpuscular Hemoglobin 26.7 pg (28.0-32.0); Mean Corpuscular Hgb Conc. 31.8 g/dL (32.0-36.0); Mean Corpuscular Volume 83.9 fL (80.0-100.0); Monocytes # (auto) 0.3 10 ^3/uL (0-1.3); Monocytes % (auto) 5.2 % (0.0-12.0); Neutrophils % (auto) 85.1 % (37.0-80.0); Nucleated Red Blood Cells % 0.3 %; Red Cell Distribution Width 19.2 % (11.8-14.3); White Blood Cell 5.9 10^3/uL (4.4-10.8)
[2022-02-24] MEDS ORDERED: ALBUMIN 25% 100 ML IV ONE ×2 (05:00→05:11)
[2022-02-24 06:10] LABS: Albumin 2.4 g/dL (3.4-5.0); Calcium 7.6 mg/dL (8.5-10.1); Potassium 3.8 mmol/L (3.5-5.1)
[2022-02-24 06:14] LABS: Bilirubin, Total 3.8 mg/dL (0.2-1.0); Total Protein 5.8 g/dL (6.4-8.2)
[2022-02-24] MEDS: MIDODRINE HCL 10 MG TAB PO SCH ×3 (06:37→17:52)
[2022-02-24] MEDS ORDERED: DIGOXIN (250MCG/ML) 2 ML AMPULE IV ONE (06:45)
[2022-02-24] MEDS ORDERED: metOLazone 5 MG TAB PO ONE (06:45)
[2022-02-24] MEDS ORDERED: BUMETANIDE 2.5mg/10ml (0.25 mg/ml) INJ IV ONE (07:00)
[2022-02-24] MEDS: SODIUM CHLORIDE 0.9% 500 ML IV SCH ×2 (08:01→18:20)
[2022-02-24] MEDS: NOREPINEPHRINE 8 MG/250ML KIT 250 ML IV SCH ×3 (08:51→21:17)
[2022-02-24] MEDS: cefTRIAXone 1GM/50ML D5W 50 ML IV SCH (09:30)
[2022-02-24] MEDS: DAPAGLIFLOZIN 5 MG TAB PO SCH (09:52)
[2022-02-24] MEDS: ENOXAPARIN SOD 40 MG/0.4 ML SYRINGE SC SCH (09:52)
[2022-02-24] MEDS ORDERED: BUMETANIDE INJECTION 25 MG in GIVE UN-DILUTED 0 ML IV SCH ×2 (11:00→20:15)
[2022-02-24] MEDS ORDERED: LIDOCAINE 1% (LOCAL ANESTH.) PF 5ml SDV ID ONE (11:15)
[2022-02-24 21:29] LABS: BUN/Creatinine Ratio 18.1; Calcium 8.2 mg/dL (8.5-10.1); Magnesium 1.8 mg/dL (1.6-2.6); Potassium 3.3 mmol/L (3.5-5.1)
[2022-02-24] MEDS ORDERED: MAGNESIUM SULFATE 1GM/100ML 100 ML IV ONE (22:00)
[2022-02-24] MEDS: VASOPRESSIN 50 UNITS in D5W 5% 247.5 ML IV SCH (22:15)
[2022-02-24] MEDS: SODIUM CHLOR 0.9% PF (SALINE LOCK) 10ML VIAL/SYR IV SCH (22:34)
[2022-02-24] MEDS: POTASSIUM CHL 20MEQ/100ML 100 ML IV SCH (23:57)
[2022-02-25] VITALS (92 sets, daily range): BP systolic 79–119; BP diastolic 35–72
[2022-02-25] MEDS: POTASSIUM CHL 20MEQ/100ML 100 ML IV SCH ×3 (01:45→08:03)
[2022-02-25] MEDS: NOREPINEPHRINE 8 MG/250ML KIT 250 ML IV SCH ×3 (02:01→18:46)
[2022-02-25 04:39] LABS: Basophils # (auto) 0 10 ^3/uL (0-0.2); Basophils % (auto) 0.3 % (0.0-2.0); Eosinophils # (auto) 0 10 ^3/uL (0-0.8); Hematocrit 33.1 % (36.0-46.0); Hemoglobin 10.8 g/dL (12.2-16.2); Lymphocytes # (auto) 0.5 10 ^3/uL (0.4-5.4); Lymphocytes % (auto) 5.4 % (10.0-50.0); Mean Corpuscular Hgb Conc. 32.7 g/dL (32.0-36.0); Mean Corpuscular Volume 82.6 fL (80.0-100.0); Monocytes # (auto) 0.3 10 ^3/uL (0-1.3); Neutrophils # (auto) 8.2 10 ^3/uL (1.6-8.6); Neutrophils % (auto) 91.3 % (37.0-80.0); Nucleated Red Blood Cells % 0.1 %; Red Cell Distribution Width 19.2 % (11.8-14.3); White Blood Cell 8.9 10^3/uL (4.4-10.8)
[2022-02-25 04:55] LABS: Albumin 2.1 g/dL (3.4-5.0); Calcium 7.7 mg/dL (8.5-10.1); Potassium 3.1 mmol/L (3.5-5.1)
[2022-02-25 04:59] LABS: BUN/Creatinine Ratio 21.1; Bilirubin, Total 4.1 mg/dL (0.2-1.0); Total Protein 5.4 g/dL (6.4-8.2)
[2022-02-25] MEDS: MIDODRINE HCL 10 MG TAB PO SCH ×3 (06:14→17:56)
[2022-02-25] MEDS ORDERED: ALBUMIN 5% 250 ML IV ONE (07:15)
[2022-02-25] MEDS ORDERED: DIGOXIN (250MCG/ML) 2 ML AMPULE IV ONE (07:30)
[2022-02-25] MEDS: cefTRIAXone 1GM/50ML D5W 50 ML IV SCH (08:49)
[2022-02-25] MEDS: DAPAGLIFLOZIN 5 MG TAB PO SCH (09:43)
[2022-02-25] MEDS: ENOXAPARIN SOD 40 MG/0.4 ML SYRINGE SC SCH (09:43)
[2022-02-25] MEDS: SODIUM CHLOR 0.9% PF (SALINE LOCK) 10ML VIAL/SYR IV SCH ×2 (09:44→22:35)
[2022-02-25] MEDS ORDERED: SPIRONOLACTONE 25 MG TAB PO ONE (11:30)
[2022-02-25] MEDS: HYDROcodone-ACET 5/325MG TAB PO PRN ×2 (13:47→19:37)
[2022-02-25 17:33] LABS: Magnesium 1.8 mg/dL (1.6-2.6); Phosphorus 2.9 mg/dL (2.5-4.90)
[2022-02-25] MEDS: VASOPRESSIN 50 UNITS in D5W 5% 247.5 ML IV SCH (22:15)
[2022-02-26] VITALS (93 sets, daily range): BP systolic 83–118; BP diastolic 38–84
[2022-02-26] MEDS: NOREPINEPHRINE 8 MG/250ML KIT 250 ML IV SCH ×3 (02:14→18:52)
[2022-02-26 04:16] LABS: Hematocrit 32.5 % (36.0-46.0); Hemoglobin 10.7 g/dL (12.2-16.2); Mean Corpuscular Hemoglobin 27.1 pg (28.0-32.0); Mean Corpuscular Hgb Conc. 32.8 g/dL (32.0-36.0); Mean Corpuscular Volume 82.4 fL (80.0-100.0); Red Blood Cells 3.95 10^6/uL (4.0-5.20); Red Cell Distribution Width 19.5 % (11.8-14.3); White Blood Cell 10.7 10^3/uL (4.4-10.8)
[2022-02-26 04:27] LABS: Basophils % (manual) 0 (0.0-2.0); Blast Cells 0; Eosinophils % (manual) 0 (0-7); Metamyelocytes % 0; Myelocytes % 0; Promyelocytes % 0; Reactive Lymphocytes 0
[2022-02-26 04:33] LABS: BUN/Creatinine Ratio 22.7; Calcium 8.3 mg/dL (8.5-10.1)
[2022-02-26 04:38] LABS: Potassium 2.6 mmol/L (3.5-5.1)
[2022-02-26] MEDS: MIDODRINE HCL 10 MG TAB PO SCH ×3 (05:45→17:30)
[2022-02-26] MEDS: HYDROcodone-ACET 5/325MG TAB PO PRN ×2 (06:51→17:30)
[2022-02-26] MEDS: POTASSIUM CHL 20MEQ/100ML 100 ML IV SCH ×3 (08:58→12:58)
[2022-02-26] MEDS: cefTRIAXone 1GM/50ML D5W 50 ML IV SCH (09:11)
[2022-02-26] MEDS: ENOXAPARIN SOD 40 MG/0.4 ML SYRINGE SC SCH (09:51)
[2022-02-26] MEDS: DAPAGLIFLOZIN 5 MG TAB PO SCH (09:51)
[2022-02-26] MEDS: SODIUM CHLOR 0.9% PF (SALINE LOCK) 10ML VIAL/SYR IV SCH ×2 (09:52→21:24)
[2022-02-26 11:01] LABS: Band Neutrophils % (manual) 4; Lymphocytes % (manual) 14 (10.0-50.0); Monocytes % (manual) 2 (0-12)
[2022-02-26 19:01] LABS: Calcium 8.3 mg/dL (8.5-10.1)
[2022-02-26 19:03] LABS: BUN/Creatinine Ratio 22.6
[2022-02-26 20:37] LABS: Hepatitis C Antibody Negative (Negative)
[2022-02-26] MEDS: VASOPRESSIN 50 UNITS in D5W 5% 247.5 ML IV SCH (21:25)
[2022-02-26] MEDS ORDERED: POTASSIUM CHL 20MEQ/100ML 100 ML IV ONE (22:15)
[2022-02-27] VITALS (55 sets, daily range): BP systolic 92–122; BP diastolic 47–92
[2022-02-27] MEDS: NOREPINEPHRINE 8 MG/250ML KIT 250 ML IV SCH ×2 (03:32→14:00)
[2022-02-27] MEDS: HYDROcodone-ACET 5/325MG TAB PO PRN ×2 (03:50→14:25)
[2022-02-27 05:54] LABS: Basophils # (auto) 0 10 ^3/uL (0-0.2); Eosinophils # (auto) 0.1 10 ^3/uL (0-0.8); Neutrophils # (auto) 10.2 10 ^3/uL (1.6-8.6); White Blood Cell 11.9 10^3/uL (4.4-10.8)
[2022-02-27 05:56] LABS: Basophils % (auto) 0.4 % (0.0-2.0); Eosinophils % (auto) 0.9 % (0.0-7.0); Hemoglobin 10.7 g/dL (12.2-16.2); Lymphocytes # (auto) 0.6 10 ^3/uL (0.4-5.4); Lymphocytes % (auto) 5.2 % (10.0-50.0); Mean Corpuscular Hemoglobin 26.4 pg (28.0-32.0); Mean Corpuscular Hgb Conc. 32.3 g/dL (32.0-36.0); Mean Corpuscular Volume 81.7 fL (80.0-100.0); Monocytes % (auto) 8.5 % (0.0-12.0); Nucleated Red Blood Cells % 0.1 %; Red Blood Cells 4.05 10^6/uL (4.0-5.20); Red Cell Distribution Width 19.2 % (11.8-14.3)
[2022-02-27 06:08] LABS: Calcium 7.7 mg/dL (8.5-10.1)
[2022-02-27] MEDS: MIDODRINE HCL 10 MG TAB PO SCH ×2 (06:13→12:48)
[2022-02-27] MEDS: POTASSIUM CHL 20MEQ/100ML 100 ML IV SCH ×4 (06:58→14:00)
[2022-02-27] MEDS ORDERED: MAGNESIUM SULFATE 1GM/100ML 200 ML IV ONE (09:21)
[2022-02-27] MEDS: cefTRIAXone 1GM/50ML D5W 50 ML IV SCH (09:37)
[2022-02-27] MEDS: MAGNESIUM SULFATE 1GM/100ML 100 ML IV SCH ×2 (09:49→10:47)
[2022-02-27] MEDS: SODIUM CHLOR 0.9% PF (SALINE LOCK) 10ML VIAL/SYR IV SCH (09:50)
[2022-02-27] MEDS: DAPAGLIFLOZIN 5 MG TAB PO SCH (10:46)
[2022-02-27] MEDS: ENOXAPARIN SOD 40 MG/0.4 ML SYRINGE SC SCH (10:47)
[2022-02-27] MEDS ORDERED: HYDROCORTISONE SOD SUCC 100 MG/2ML INJ VIAL IV SCH (14:00)
== END 2022-02-27 14:15 | disposition short-term general hospital (02) | DRG 133 ==
LOC: ER 05:21 → OVERFLOW 09:50 → TELE 13:08 → ICU WEST 20:45
PROVIDERS: ADMIT Internal Medicine; ATTEND Internal Medicine Pulmonary Disease
DX: J96.01 Acute respiratory failure with hypoxia (principal); R57.0 Cardiogenic shock; N17.0 Acute kidney failure with tubular necrosis; I50.43 Acute on chronic combined systolic (congestive) and diastolic (congestive) heart failure; E87.1 Hypo-osmolality and hyponatremia; D68.9 Coagulation defect, unspecified; D69.6 Thrombocytopenia, unspecified; I13.0 Hypertensive heart and chronic kidney disease with heart failure and stage 1 through stage 4 chronic kidney disease, or unspecified chronic kidney disease; E88.09 Other disorders of plasma-protein metabolism, not elsewhere classified; Z20.822 Contact with and (suspected) exposure to COVID-19; I42.7 Cardiomyopathy due to drug and external agent; R18.8 Other ascites; E86.1 Hypovolemia; E66.9 Obesity, unspecified; Z68.37 Body mass index [BMI] 37.0-37.9, adult; D64.9 Anemia, unspecified; E83.42 Hypomagnesemia; E87.6 Hypokalemia; F15.90 Other stimulant use, unspecified, uncomplicated; J98.11 Atelectasis; K59.00 Constipation, unspecified; K76.9 Liver disease, unspecified; N18.31 Chronic kidney disease, stage 3a; Z82.41 Family history of sudden cardiac death
CPT/HCPCS: 36415; 36569; 71045; 76705; 76775; 80048; 80053; 80307; 81001; 82306; 83615; 83735; 83880; 83970; 84100; 84484; 85007; 85025; 85027; 85610; 85730; 86803; 87040; 87081; 87340; 93005; 96365; 96366; 96372; 96375; 99291; G0378; J0696; J2405; J3480; J7060; P9047

== ENCOUNTER 2022-05-05 21:16 | Inpatient (IN) | payer MEDICAID ==
[~2022-05-05] VITALS: Ht 172.7 cm; Wt 88.5 kg
[2022-05-05 22:52] LABS: Basophils # (auto) 0.1 10 ^3/uL (0-0.2); Eosinophils # (auto) 0.1 10 ^3/uL (0-0.8); Eosinophils % (auto) 2.6 % (0.0-7.0); Hematocrit 37.8 % (36.0-46.0); Lymphocytes % (auto) 25.3 % (10.0-50.0); Mean Corpuscular Hemoglobin 27.2 pg (28.0-32.0); Mean Corpuscular Hgb Conc. 31.8 g/dL (32.0-36.0); Mean Corpuscular Volume 85.6 fL (80.0-100.0); Monocytes # (auto) 0.2 10 ^3/uL (0-1.3); Monocytes % (auto) 5.8 % (0.0-12.0); Neutrophils # (auto) 2.6 10 ^3/uL (1.6-8.6); Neutrophils % (auto) 64.3 % (37.0-80.0); Nucleated Red Blood Cells % 0.3 %; Red Blood Cells 4.42 10^6/uL (4.0-5.20); Red Cell Distribution Width 19.8 % (11.8-14.3); White Blood Cell 4.1 10^3/uL (4.4-10.8)
[2022-05-05 23:11] LABS: Albumin 2.9 g/dL (3.4-5.0); Calcium 9.1 mg/dL (8.5-10.1); Potassium 3.6 mmol/L (3.5-5.1)
[2022-05-05 23:16] LABS: Total Protein 8.4 g/dL (6.4-8.2)
[2022-05-06] MEDS ORDERED: ACETAMINOPHEN 325 MG TAB PO ONE (00:30)
[2022-05-06] MEDS ORDERED: FUROSEMIDE 20 MG/2 ML VIAL IV ONE (00:45)
[2022-05-06 02:15] LABS: Urine Bacteria NONE SEEN /hpf (None Seen); Urine Blood Negative /uL (Negative); Urine Specific Gravity 1.016 (1.001-1.035); Urine WBC 2 /hpf (0 - 5)
[2022-05-06] MEDS ORDERED: ACETAMINOPHEN 325 MG TAB PO PRN (02:45)
[2022-05-06] MEDS ORDERED: TEMAZEPAM 15 MG CAP PO PRN (02:45)
[2022-05-06] MEDS ORDERED: MORPHINE SULFATE INJ 2 MG/ml SYRG IV PRN (02:45)
[2022-05-06] MEDS ORDERED: NITROGLYCERIN 0.4 MG SL TAB SL PRN (02:45)
[2022-05-06] MEDS ORDERED: ALBUTEROL SULF 2.5 MG/0.5ML(0.5%) NEB SOLN NEB PRN (02:45)
[2022-05-06] MEDS: HYDROcodone-ACET 5/325MG TAB PO PRN ×2 (03:40→18:50)
[2022-05-06 04:15] VITALS: BP 103/76
[2022-05-06] MEDS: FUROSEMIDE 40 MG/4 ML VIAL IV SCH ×2 (06:46→18:29)
[2022-05-06] MEDS: ONDANSETRON HCL 4 MG/2 ML VIAL IV PRN ×2 (08:08→13:35)
[2022-05-06 09:02] LABS: INR 1.46 (0.9-1.15); Partial Thromboplastin Time 28.7 sec (24.6-33.4)
[2022-05-06] MEDS ORDERED: PANTOPRAZOLE 40 MG TAB PO SCH (10:00)
[2022-05-06] MEDS: CARVEDILOL 3.125 MG TAB PO SCH ×3 (10:00→23:01)
[2022-05-06] MEDS: ASPirin 81 mg TAB PO SCH (10:52)
[2022-05-06] MEDS: ENOXAPARIN SOD 40 MG/0.4 ML SYRINGE SC SCH (10:59)
[2022-05-06 12:04] LABS: BUN/Creatinine Ratio 23.6; Calcium 8.5 mg/dL (8.5-10.1)
[2022-05-06] MEDS: ATORVASTATIN 20 MG TAB PO SCH (23:01)
[2022-05-06 23:12] VITALS: BP 109/62
[2022-05-07 05:00] VITALS: BP 95/65
[2022-05-07] MEDS: FUROSEMIDE 40 MG/4 ML VIAL IV SCH ×2 (05:08→18:00)
[2022-05-07 05:36] LABS: Basophils # (auto) 0.1 10 ^3/uL (0-0.2); Basophils % (auto) 3.4 % (0.0-2.0); Eosinophils # (auto) 0.1 10 ^3/uL (0-0.8); Eosinophils % (auto) 2.1 % (0.0-7.0); Hematocrit 35.1 % (36.0-46.0); Hemoglobin 11.5 g/dL (12.2-16.2); Lymphocytes # (auto) 1.2 10 ^3/uL (0.4-5.4); Lymphocytes % (auto) 29.3 % (10.0-50.0); Mean Corpuscular Hemoglobin 27.9 pg (28.0-32.0); Mean Corpuscular Hgb Conc. 32.9 g/dL (32.0-36.0); Mean Corpuscular Volume 84.8 fL (80.0-100.0); Monocytes # (auto) 0.4 10 ^3/uL (0-1.3); Monocytes % (auto) 10.6 % (0.0-12.0); Neutrophils # (auto) 2.2 10 ^3/uL (1.6-8.6); Neutrophils % (auto) 54.6 % (37.0-80.0); Nucleated Red Blood Cells % 0.4 %; Red Blood Cells 4.14 10^6/uL (4.0-5.20); Red Cell Distribution Width 19.6 % (11.8-14.3); White Blood Cell 4.1 10^3/uL (4.4-10.8)
[2022-05-07 05:46] LABS: Albumin 2.4 g/dL (3.4-5.0); Calcium 8.5 mg/dL (8.5-10.1); Magnesium 1.9 mg/dL (1.6-2.6); Potassium 4.3 mmol/L (3.5-5.1)
[2022-05-07 05:51] LABS: Total Protein 6.7 g/dL (6.4-8.2)
[2022-05-07 08:05] VITALS: BP 107/72
[2022-05-07 09:00] VITALS: BP 107/72
[2022-05-07] MEDS: ASPirin 81 mg TAB PO SCH (09:55)
[2022-05-07] MEDS: ENOXAPARIN SOD 40 MG/0.4 ML SYRINGE SC SCH (09:56)
[2022-05-07] MEDS: CARVEDILOL 3.125 MG TAB PO SCH ×2 (09:56→21:52)
[2022-05-07] MEDS ORDERED: ALBUMIN 25% 50 ML IV ONE (11:15)
[2022-05-07] MEDS: DAKINS QUARTER STR 0.125% (NaHypochlorite) 473 ML TOPICAL SOL TOP SCH (12:43)
[2022-05-07 13:00] VITALS: BP 100/68
[2022-05-07 17:00] VITALS: BP 89/60
[2022-05-07] MEDS ORDERED: ALBUMIN 25% 100 ML IV ONE (17:00)
[2022-05-07] MEDS: ONDANSETRON HCL 4 MG/2 ML VIAL IV PRN (20:38)
[2022-05-07 21:00] LABS: Urine Bacteria FEW /hpf (None Seen); Urine Blood 3+ /uL (Negative); Urine Hyaline Cast MOD /lpf (0 - 2); Urine Mucus FEW (None Seen); Urine Specific Gravity 1.019 (1.001-1.035); Urine WBC 28 /hpf (0 - 5)
[2022-05-07 21:06] LABS: Protein, Urine 72.6 mg/dL (0.0-11.9); Sodium Urine < 5 mmol/L (40-220)
[2022-05-07 21:11] LABS: Alcohol, Urine < 3.0 mg/dL (0-10); Amphetamine Screen, Urine NEGATIVE (NEGATIVE); Barbiturate Scree,Urine NEGATIVE (NEGATIVE); Benzodiazephine Screen, Urine NEGATIVE (NEGATIVE); Cannabinoid Screen, Urine NEGATIVE (NEGATIVE); Cocaine Screen, Urine NEGATIVE (NEGATIVE); Opiate Scree,Urine NEGATIVE (NEGATIVE); Phencyclidine Screen, Urine NEGATIVE (NEGATIVE)
[2022-05-07] MEDS: ATORVASTATIN 20 MG TAB PO SCH (21:51)
[2022-05-07 22:00] VITALS: BP 110/65
[2022-05-08] VITALS (7 sets, daily range): BP systolic 94–125; BP diastolic 55–70
[2022-05-08] MEDS: ONDANSETRON HCL 4 MG/2 ML VIAL IV PRN (01:22)
[2022-05-08] MEDS: HYDROcodone-ACET 5/325MG TAB PO PRN (01:23)
[2022-05-08 06:01] LABS: Basophils # (auto) 0 10 ^3/uL (0-0.2); Basophils % (auto) 0.3 % (0.0-2.0); Eosinophils # (auto) 0.1 10 ^3/uL (0-0.8); Eosinophils % (auto) 2.4 % (0.0-7.0); Hematocrit 34.2 % (36.0-46.0); Hemoglobin 11.2 g/dL (12.2-16.2); Lymphocytes # (auto) 1.1 10 ^3/uL (0.4-5.4); Lymphocytes % (auto) 26.4 % (10.0-50.0); Mean Corpuscular Hemoglobin 27.6 pg (28.0-32.0); Mean Corpuscular Hgb Conc. 32.8 g/dL (32.0-36.0); Mean Corpuscular Volume 84.2 fL (80.0-100.0); Monocytes # (auto) 0.4 10 ^3/uL (0-1.3); Monocytes % (auto) 10.1 % (0.0-12.0); Neutrophils # (auto) 2.4 10 ^3/uL (1.6-8.6); Neutrophils % (auto) 60.8 % (37.0-80.0); Nucleated Red Blood Cells % 0.3 %; Red Blood Cells 4.06 10^6/uL (4.0-5.20); Red Cell Distribution Width 19.6 % (11.8-14.3)
[2022-05-08] MEDS: FUROSEMIDE 40 MG/4 ML VIAL IV SCH ×2 (06:18→18:00)
[2022-05-08 06:21] LABS: BUN/Creatinine Ratio 28.4; Calcium 8.4 mg/dL (8.5-10.1); Magnesium 2.2 mg/dL (1.6-2.6); Potassium 4.3 mmol/L (3.5-5.1); Uric Acid 11.3 mg/dL (2.6-6.0)
[2022-05-08] MEDS: ASPirin 81 mg TAB PO SCH (10:09)
[2022-05-08] MEDS: CARVEDILOL 3.125 MG TAB PO SCH ×2 (10:10→21:51)
[2022-05-08] MEDS ORDERED: CARVEDILOL 3.125 MG TAB PO ONE (12:45)
[2022-05-08] MEDS ORDERED: CARV6.2551 PO (12:55)
[2022-05-08] MEDS: DAKINS QUARTER STR 0.125% (NaHypochlorite) 473 ML TOPICAL SOL TOP SCH (18:26)
[2022-05-08] MEDS: ATORVASTATIN 20 MG TAB PO SCH (21:52)
[2022-05-09 05:00] VITALS: BP 95/70
[2022-05-09] MEDS: FUROSEMIDE 40 MG/4 ML VIAL IV SCH ×2 (06:00→18:00)
[2022-05-09 08:00] VITALS: BP 93/67
[2022-05-09 09:00] VITALS: BP 93/67
[2022-05-09] MEDS: DAKINS QUARTER STR 0.125% (NaHypochlorite) 473 ML TOPICAL SOL TOP SCH (10:00)
[2022-05-09] MEDS: CARVEDILOL 3.125 MG TAB PO SCH ×2 (11:21→22:05)
[2022-05-09] MEDS: ASPirin 81 mg TAB PO SCH (11:22)
[2022-05-09 12:30] VITALS: BP 99/68
[2022-05-09 16:30] VITALS: BP 102/73
[2022-05-09 22:00] VITALS: BP 95/68
[2022-05-09] MEDS: ATORVASTATIN 20 MG TAB PO SCH (22:05)
[2022-05-10] MEDS: ONDANSETRON HCL 4 MG/2 ML VIAL IV PRN (03:20)
[2022-05-10 05:00] VITALS: BP 92/62
[2022-05-10] MEDS: FUROSEMIDE 40 MG/4 ML VIAL IV SCH (05:34)
[2022-05-10 08:00] VITALS: BP_SYST 92; BP_DIAS 63; BP_DIAS 68
[2022-05-10] MEDS ORDERED: ALBUMIN 25% 100 ML IV ONE ×4 (08:46→10:30)
[2022-05-10] MEDS ORDERED: ALBUMIN 25% 0 ML IV ONE (09:33)
[2022-05-10 11:21] LABS: INR 1.58 (0.9-1.15); Partial Thromboplastin Time 30.8 sec (24.6-33.4)
[2022-05-10] MEDS: ASPirin 81 mg TAB PO SCH (11:39)
[2022-05-10] MEDS: CARVEDILOL 3.125 MG TAB PO SCH (11:39)
[2022-05-10] MEDS: HYDROcodone-ACET 5/325MG TAB PO PRN ×2 (11:40→16:20)
[2022-05-10 12:00] VITALS: BP 88/61
[2022-05-10] MEDS: DAKINS QUARTER STR 0.125% (NaHypochlorite) 473 ML TOPICAL SOL TOP SCH (12:18)
[2022-05-10 16:00] VITALS: BP 85/64
== END 2022-05-10 17:48 | disposition home or self-care (01) | DRG 194 ==
LOC: ER 21:16 → TELE 05-06 02:44 → TELE-EAST 05-06 22:00
PROVIDERS: ADMIT Nurse Practitioner; ATTEND Internal Medicine
PROC: 0W9G3ZZ Drainage of Peritoneal Cavity, Percutaneous Approach (ICD-10-PCS; principal; 2022-05-06)
PROC: 0W9G30Z Drainage of Peritoneal Cavity with Drainage Device, Percutaneous Approach (ICD-10-PCS; 2022-05-10)
DX: I13.0 Hypertensive heart and chronic kidney disease with heart failure and stage 1 through stage 4 chronic kidney disease, or unspecified chronic kidney disease (principal); J96.01 Acute respiratory failure with hypoxia; N17.9 Acute kidney failure, unspecified; R18.8 Other ascites; I95.9 Hypotension, unspecified; D63.1 Anemia in chronic kidney disease; E11.22 Type 2 diabetes mellitus with diabetic chronic kidney disease; K74.60 Unspecified cirrhosis of liver; I50.23 Acute on chronic systolic (congestive) heart failure; N18.9 Chronic kidney disease, unspecified; F41.9 Anxiety disorder, unspecified; E66.01 Morbid (severe) obesity due to excess calories; Z68.29 Body mass index [BMI] 29.0-29.9, adult; Z79.899 Other long term (current) drug therapy; Z82.3 Family history of stroke; Z82.49 Family history of ischemic heart disease and other diseases of the circulatory system; Z83.3 Family history of diabetes mellitus; Z95.810 Presence of automatic (implantable) cardiac defibrillator
CPT/HCPCS: 36415; 71045; 76700; 76705; 76942; 80048; 80053; 80307; 81001; 83690; 83735; 83880; 84156; 84300; 84443; 84484; 84550; 85025; 85610; 85730; 87077; 87186; 87205; 87426; 89051; 93005; 96374; G0378; J2405; P9047

== ENCOUNTER 2022-06-10 22:57 | Inpatient (IN) | payer MEDICAID ==
[~2022-06-10] VITALS: Ht 170.2 cm; Wt 58.1 kg
[~2022-06-10 22:57] MED LIST changes: -CAR3125T PO; -CARV3.1240 PO; +CARV6.2551 PO; -METO2.5T PO; -POTA1TAB61 PO
[2022-06-10 23:43] LABS: Basophils # (auto) 0.1 10 ^3/uL (0-0.2); Eosinophils # (auto) 0.1 10 ^3/uL (0-0.8); Monocytes # (auto) 0.4 10 ^3/uL (0-1.3); Neutrophils # (auto) 2.4 10 ^3/uL (1.6-8.6); Nucleated Red Blood Cells % 0.2 %; White Blood Cell 3.8 10^3/uL (4.4-10.8)
[2022-06-10 23:45] LABS: Basophils % (auto) 1.7 % (0.0-2.0); Eosinophils % (auto) 2.9 % (0.0-7.0); Hematocrit 33.3 % (36.0-46.0); Lymphocytes # (auto) 0.8 10 ^3/uL (0.4-5.4); Lymphocytes % (auto) 21.9 % (10.0-50.0); Mean Corpuscular Hemoglobin 27.7 pg (28.0-32.0); Mean Corpuscular Volume 83.9 fL (80.0-100.0); Monocytes % (auto) 10.5 % (0.0-12.0); Red Blood Cells 3.97 10^6/uL (4.0-5.20); Red Cell Distribution Width 18.5 % (11.8-14.3)
[2022-06-11] MEDS ORDERED: HYDROmorphone HCL 2 MG/ML VL/or syr IV ONE ×2 (02:00→07:00)
[2022-06-11] MEDS ORDERED: diphenhdrAMINE HCL 50 MG/1 ML VL IM ONE (09:45)
[2022-06-11] MEDS ORDERED: diphenhdrAMINE HCL 12.5 MG/5 ML UD PO ONE (09:45)
[2022-06-11] MEDS ORDERED: diphenhdrAMINE HCL 50 MG/1 ML VL IV ONE (10:00)
[2022-06-11] MEDS ORDERED: DOCUSATE SOD 100 MG CAP PO PRN (11:00)
[2022-06-11] MEDS ORDERED: HYDROmorphone HCL 2 MG/ML VL/or syr IV PRN (11:00)
[2022-06-11] MEDS ORDERED: ALPRAZolam 0.5 MG TAB PO PRN (11:00)
[2022-06-11] MEDS ORDERED: ALBUTEROL SULF HFA 90MCG INH 200DOSE IN PRN (11:00)
[2022-06-11] MEDS ORDERED: ONDANSETRON HCL 4 MG/2 ML VIAL IV PRN (11:00)
[2022-06-11 11:33] VITALS: BP 108/75
[2022-06-11 12:24] LABS: INR 1.26 (0.9-1.15); Partial Thromboplastin Time 28.1 sec (24.6-33.4)
[2022-06-11] MEDS ORDERED: ALBUTEROL SULF 2.5 MG/0.5ML(0.5%) NEB SOLN NEB PRN (18:00)
[2022-06-11] MEDS: ALBUMIN 25% 100 ML IV SCH ×2 (18:57→21:58)
[2022-06-11] MEDS: CARVEDILOL 3.125 MG TAB PO SCH (22:00)
[2022-06-11] MEDS ORDERED: ALBUMIN 25% 100 ML IV SCH (22:00)
[2022-06-11 22:40] VITALS: BP 101/69
[2022-06-11] MEDS: ATORVASTATIN 20 MG TAB PO SCH (23:48)
[2022-06-11] MEDS: MAGNESIUM OXIDE 400 MG TAB PO SCH (23:48)
[2022-06-12 05:00] VITALS: BP 113/74
[2022-06-12 05:56] LABS: Basophils # (auto) 0.1 10 ^3/uL (0-0.2); Basophils % (auto) 2.5 % (0.0-2.0); Eosinophils # (auto) 0.1 10 ^3/uL (0-0.8); Eosinophils % (auto) 2.3 % (0.0-7.0); Hematocrit 32.3 % (36.0-46.0); Hemoglobin 10.5 g/dL (12.2-16.2); Lymphocytes % (auto) 24.9 % (10.0-50.0); Mean Corpuscular Hemoglobin 27.3 pg (28.0-32.0); Mean Corpuscular Hgb Conc. 32.6 g/dL (32.0-36.0); Mean Corpuscular Volume 83.7 fL (80.0-100.0); Monocytes # (auto) 0.5 10 ^3/uL (0-1.3); Monocytes % (auto) 13.8 % (0.0-12.0); Neutrophils # (auto) 2.2 10 ^3/uL (1.6-8.6); Neutrophils % (auto) 56.5 % (37.0-80.0); Nucleated Red Blood Cells % 0.2 %; Red Blood Cells 3.85 10^6/uL (4.0-5.20); Red Cell Distribution Width 18.4 % (11.8-14.3); White Blood Cell 3.9 10^3/uL (4.4-10.8)
[2022-06-12 06:17] LABS: Potassium 3.6 mmol/L (3.5-5.1)
[2022-06-12 06:28] LABS: Albumin 2.9 g/dL (3.4-5.0); BUN/Creatinine Ratio 22.1; Calcium 8.6 mg/dL (8.5-10.1); Magnesium 2.4 mg/dL (1.6-2.6); Phosphorus 3.6 mg/dL (2.5-4.90)
[2022-06-12 08:00] VITALS: BP 105/81
[2022-06-12 09:00] VITALS: BP 105/81
[2022-06-12] MEDS: metOLazone 5 MG TAB PO SCH (09:36)
[2022-06-12] MEDS: FUROSEMIDE 40 MG TAB PO SCH (09:37)
[2022-06-12] MEDS: ASPirin-EC 81 mg tab PO SCH (09:37)
[2022-06-12] MEDS: POTASSIUM CHL 10 Meq TABLET PO SCH (09:37)
[2022-06-12] MEDS: MAGNESIUM OXIDE 400 MG TAB PO SCH ×2 (09:38→22:07)
[2022-06-12] MEDS: CARVEDILOL 3.125 MG TAB PO SCH ×2 (10:00→22:06)
[2022-06-12] MEDS ORDERED: INFLUENZA QUAD 2022-2023 0.5 ML SYRG IM ONE (10:00)
[2022-06-12 13:24] VITALS: BP 110/78
[2022-06-12 16:39] VITALS: BP 94/57
[2022-06-12] MEDS ORDERED: HYDROcodone-ACET 5/325MG TAB PO PRN (17:30)
[2022-06-12 21:39] VITALS: BP_SYST 116; BP_SYST 126; BP_DIAS 70; BP_DIAS 78
[2022-06-12] MEDS: ATORVASTATIN 20 MG TAB PO SCH (22:06)
[2022-06-13 04:34] VITALS: BP 103/64
[2022-06-13 08:00] VITALS: BP 105/81
[2022-06-13 09:00] VITALS: BP 107/65
[2022-06-13] MEDS: metOLazone 5 MG TAB PO SCH (10:48)
[2022-06-13] MEDS: ASPirin-EC 81 mg tab PO SCH (10:48)
[2022-06-13] MEDS: POTASSIUM CHL 10 Meq TABLET PO SCH (10:49)
[2022-06-13] MEDS: CARVEDILOL 3.125 MG TAB PO SCH (10:50)
[2022-06-13] MEDS: MAGNESIUM OXIDE 400 MG TAB PO SCH (10:50)
[2022-06-13] MEDS: FUROSEMIDE 40 MG TAB PO SCH (10:50)
[2022-06-13] MEDS ORDERED: HYDR1TAB97 PO ×2 (12:21)
[2022-06-13] MEDS ORDERED: ALPR0.5T PO ×2 (12:21)
[2022-06-13 13:00] VITALS: BP 104/66
[2022-06-13 13:19] VITALS: BP 105/61
[2022-06-13 17:00] VITALS: BP 103/61
== END 2022-06-13 19:30 | disposition home or self-care (01) ==
LOC: ER 22:57 → UNDOADMIN 06-11 11:04 → OVERFLOW 06-11 11:04 → WEST WING 06-11 22:31 → OVERFLOW 06-11 22:40 → WEST WING 06-11 23:41
PROVIDERS: ADMIT Nurse Practitioner Family; ATTEND Nurse Practitioner Family
PROC: 0W9G3ZZ Drainage of Peritoneal Cavity, Percutaneous Approach (ICD-10-PCS; principal; 2022-06-11)
DX: R18.8 Other ascites (principal); L97.929 Non-pressure chronic ulcer of unspecified part of left lower leg with unspecified severity; K74.60 Unspecified cirrhosis of liver; I50.9 Heart failure, unspecified; I11.0 Hypertensive heart disease with heart failure; J20.9 Acute bronchitis, unspecified; E78.5 Hyperlipidemia, unspecified; Z20.822 Contact with and (suspected) exposure to COVID-19; F41.9 Anxiety disorder, unspecified; Z82.3 Family history of stroke; Z82.49 Family history of ischemic heart disease and other diseases of the circulatory system
CPT/HCPCS: 36415; 49083; 71045; 74176; 76705; 76942; 80053; 83735; 83880; 83986; 84100; 84484; 85025; 85610; 85730; 87205; 87426; 89051; 93005; 94640; 96374; 96375; 96376; G0378; P9047

== ENCOUNTER 2022-06-20 19:59 | Inpatient (IN) | payer MEDICAID ==
[~2022-06-20] VITALS: Ht 172.7 cm; Wt 93.3 kg
[2022-06-20 21:09] LABS: Basophils # (auto) 0.2 10 ^3/uL (0-0.2); Basophils % (auto) 4.4 % (0.0-2.0); Eosinophils # (auto) 0.1 10 ^3/uL (0-0.8); Eosinophils % (auto) 2.3 % (0.0-7.0); Hematocrit 34.9 % (36.0-46.0); Hemoglobin 11.3 g/dL (12.2-16.2); Lymphocytes # (auto) 0.9 10 ^3/uL (0.4-5.4); Lymphocytes % (auto) 25.1 % (10.0-50.0); Mean Corpuscular Hemoglobin 27.1 pg (28.0-32.0); Mean Corpuscular Hgb Conc. 32.4 g/dL (32.0-36.0); Mean Corpuscular Volume 83.5 fL (80.0-100.0); Monocytes # (auto) 0.3 10 ^3/uL (0-1.3); Monocytes % (auto) 9.8 % (0.0-12.0); Neutrophils # (auto) 2.1 10 ^3/uL (1.6-8.6); Neutrophils % (auto) 58.4 % (37.0-80.0); Nucleated Red Blood Cells % 0.2 %; Red Blood Cells 4.17 10^6/uL (4.0-5.20); Red Cell Distribution Width 18.1 % (11.8-14.3); White Blood Cell 3.5 10^3/uL (4.4-10.8)
[2022-06-20 21:30] LABS: Albumin 2.7 g/dL (3.4-5.0); Calcium 8.6 mg/dL (8.5-10.1); Potassium 4.2 mmol/L (3.5-5.1)
[2022-06-20 21:42] LABS: BUN/Creatinine Ratio 14.9; Bilirubin, Total 1.2 mg/dL (0.2-1.0); Total Protein 6.8 g/dL (6.4-8.2)
[2022-06-21] MEDS ORDERED: IOHEXOL 350 MG/ML 100ML IJ ONE (01:07)
[2022-06-21 02:29] LABS: INR 1.29 (0.9-1.15); Partial Thromboplastin Time 27.9 sec (24.6-33.4)
[2022-06-21 02:36] LABS: Lactic Acid w/Reflex 2.2 mmol/L (0.4-2.0)
[2022-06-21] MEDS ORDERED: LORazepam 0.5 MG TAB PO PRN (04:30)
[2022-06-21] MEDS ORDERED: MORPHINE SULFATE INJ 2 MG/ml SYRG IV PRN (04:30)
[2022-06-21] MEDS ORDERED: FUROSEMIDE 40 MG/4 ML VIAL IV ONE (04:30)
[2022-06-21] MEDS ORDERED: TEMAZEPAM 15 MG CAP PO PRN (04:30)
[2022-06-21] MEDS ORDERED: ONDANSETRON HCL 4 MG/2 ML VIAL IV PRN (04:30)
[2022-06-21] MEDS ORDERED: DOCUSATE SOD 100 MG CAP PO PRN (04:30)
[2022-06-21] MEDS ORDERED: ACETAMINOPHEN 325 MG TAB PO PRN (04:30)
[2022-06-21] MEDS ORDERED: HYDROmorphone HCL 2 MG/ML VL/or syr IV PRN (04:30)
[2022-06-21 07:51] LABS: Basophils # (auto) 0.1 10 ^3/uL (0-0.2); Eosinophils # (auto) 0.1 10 ^3/uL (0-0.8); Eosinophils % (auto) 2.7 % (0.0-7.0); Hemoglobin 11.8 g/dL (12.2-16.2); Mean Corpuscular Hemoglobin 26.4 pg (28.0-32.0); Monocytes # (auto) 0.3 10 ^3/uL (0-1.3); Monocytes % (auto) 8.7 % (0.0-12.0); Neutrophils # (auto) 2.2 10 ^3/uL (1.6-8.6); Nucleated Red Blood Cells % 0.1 %
[2022-06-21 07:54] LABS: Hematocrit 37.6 % (36.0-46.0); Lymphocytes % (auto) 25.8 % (10.0-50.0); Mean Corpuscular Hgb Conc. 31.4 g/dL (32.0-36.0); Neutrophils % (auto) 59.8 % (37.0-80.0); Red Blood Cells 4.47 10^6/uL (4.0-5.20); Red Cell Distribution Width 18.1 % (11.8-14.3); White Blood Cell 3.7 10^3/uL (4.4-10.8)
[2022-06-21 07:58] LABS: Calcium 8.8 mg/dL (8.5-10.1); Potassium 3.6 mmol/L (3.5-5.1)
[2022-06-21 08:05] LABS: BUN/Creatinine Ratio 14.6
[2022-06-21] MEDS: ATORVASTATIN 20 MG TAB PO SCH (11:00)
[2022-06-21] MEDS: metOLazone 5 MG TAB PO SCH (11:59)
[2022-06-21] MEDS: HYDROcodone-ACET 5/325MG TAB PO PRN (12:25)
[2022-06-21] MEDS: CARVEDILOL 3.125 MG TAB PO SCH ×2 (12:26→22:13)
[2022-06-21] MEDS: FUROSEMIDE 40 MG/4 ML VIAL IV SCH (12:32)
[2022-06-21 17:00] VITALS: BP 109/75
[2022-06-21 22:00] VITALS: BP 111/79
[2022-06-22 04:45] VITALS: BP 101/71
[2022-06-22 05:46] LABS: Basophils # (auto) 0.1 10 ^3/uL (0-0.2); Eosinophils # (auto) 0.1 10 ^3/uL (0-0.8); Lymphocytes # (auto) 0.6 10 ^3/uL (0.4-5.4); Monocytes # (auto) 0.5 10 ^3/uL (0-1.3); Neutrophils # (auto) 3.1 10 ^3/uL (1.6-8.6); Nucleated Red Blood Cells % 0.1 %
[2022-06-22 05:49] LABS: Basophils % (auto) 1.4 % (0.0-2.0); Eosinophils % (auto) 2.7 % (0.0-7.0); Hematocrit 31.7 % (36.0-46.0); Hemoglobin 10.3 g/dL (12.2-16.2); Lymphocytes % (auto) 12.9 % (10.0-50.0); Mean Corpuscular Hgb Conc. 32.6 g/dL (32.0-36.0); Mean Corpuscular Volume 82.6 fL (80.0-100.0); Monocytes % (auto) 10.6 % (0.0-12.0); Neutrophils % (auto) 72.4 % (37.0-80.0); Red Blood Cells 3.84 10^6/uL (4.0-5.20); Red Cell Distribution Width 18.1 % (11.8-14.3); White Blood Cell 4.3 10^3/uL (4.4-10.8)
[2022-06-22 05:58] LABS: Calcium 8.1 mg/dL (8.5-10.1); Magnesium 1.8 mg/dL (1.6-2.6); Potassium 3.5 mmol/L (3.5-5.1)
[2022-06-22 06:04] LABS: BUN/Creatinine Ratio 16.3
[2022-06-22 09:00] VITALS: BP 94/60
[2022-06-22] MEDS: metOLazone 5 MG TAB PO SCH (09:33)
[2022-06-22] MEDS: CARVEDILOL 3.125 MG TAB PO SCH ×2 (09:33→22:00)
[2022-06-22] MEDS: ATORVASTATIN 20 MG TAB PO SCH (09:33)
[2022-06-22] MEDS: FUROSEMIDE 40 MG/4 ML VIAL IV SCH (09:33)
[2022-06-22 13:00] VITALS: BP 99/65
[2022-06-22 16:59] VITALS: BP 104/74
[2022-06-22 22:00] VITALS: BP 97/64
[2022-06-23 05:00] VITALS: BP 98/66
[2022-06-23 09:21] VITALS: BP 98/67
[2022-06-23] MEDS: ATORVASTATIN 20 MG TAB PO SCH (10:37)
[2022-06-23] MEDS: CARVEDILOL 3.125 MG TAB PO SCH ×2 (10:37→22:12)
[2022-06-23] MEDS: FUROSEMIDE 40 MG/4 ML VIAL IV SCH (10:37)
[2022-06-23] MEDS: metOLazone 5 MG TAB PO SCH (10:37)
[2022-06-23 12:27] VITALS: BP 133/87
[2022-06-23] MEDS: HYDROcodone-ACET 5/325MG TAB PO PRN ×2 (15:07→22:15)
[2022-06-23 16:59] VITALS: BP 98/65
[2022-06-23 22:00] VITALS: BP 101/66
[2022-06-24] MEDS: HYDROcodone-ACET 5/325MG TAB PO PRN (04:27)
[2022-06-24 05:00] VITALS: BP 98/59
[2022-06-24 08:50] VITALS: BP 98/68
[2022-06-24] MEDS: FUROSEMIDE 40 MG/4 ML VIAL IV SCH (09:50)
[2022-06-24] MEDS: metOLazone 5 MG TAB PO SCH (09:50)
[2022-06-24] MEDS: CARVEDILOL 3.125 MG TAB PO SCH (09:50)
[2022-06-24] MEDS: ATORVASTATIN 20 MG TAB PO SCH (09:50)
[2022-06-24 12:26] VITALS: BP 98/68
[2022-06-24 13:39] VITALS: BP 83/47
== END 2022-06-24 17:19 | disposition home or self-care (01) ==
LOC: ER 20:02 → OVERFLOW 06-21 04:29 → CENTRAL 06-21 16:39
PROVIDERS: ADMIT Hospitalist; ATTEND Internal Medicine
PROC: 0W9G3ZZ Drainage of Peritoneal Cavity, Percutaneous Approach (ICD-10-PCS; principal; 2022-06-22)
DX: K74.60 Unspecified cirrhosis of liver (principal); I42.0 Dilated cardiomyopathy; R18.8 Other ascites; S81.802A Unspecified open wound, left lower leg, initial encounter; L97.929 Non-pressure chronic ulcer of unspecified part of left lower leg with unspecified severity; F41.9 Anxiety disorder, unspecified; X58.XXXA Exposure to other specified factors, initial encounter; I11.0 Hypertensive heart disease with heart failure; Z20.822 Contact with and (suspected) exposure to COVID-19; E78.5 Hyperlipidemia, unspecified; E66.01 Morbid (severe) obesity due to excess calories; Z68.34 Body mass index [BMI] 34.0-34.9, adult; Z83.3 Family history of diabetes mellitus; Z82.3 Family history of stroke; Z82.49 Family history of ischemic heart disease and other diseases of the circulatory system; Y93.89 Activity, other specified; Y92.89 Other specified places as the place of occurrence of the external cause; Y99.8 Other external cause status; I50.9 Heart failure, unspecified
CPT/HCPCS: 36415; 49083; 71045; 74177; 80048; 80053; 82553; 83605; 83690; 83735; 83880; 83930; 84484; 85025; 85610; 85730; 87077; 87081; 87186; 87205; 87426; 89051; 96374; 96376; G0378

== ENCOUNTER 2022-08-02 23:55 | Inpatient (IN) | payer MEDICAID ==
[~2022-08-02] VITALS: Ht 170.2 cm; Wt 94.3 kg
[2022-08-03 00:33] LABS: Basophils # (auto) 0.1 10 ^3/uL (0-0.2); Basophils % (auto) 1.2 % (0.0-2.0); Eosinophils # (auto) 0.1 10 ^3/uL (0-0.8); Lymphocytes # (auto) 1.2 10 ^3/uL (0.4-5.4); Monocytes # (auto) 0.4 10 ^3/uL (0-1.3); Neutrophils # (auto) 2.6 10 ^3/uL (1.6-8.6); White Blood Cell 4.3 10^3/uL (4.4-10.8)
[2022-08-03 00:34] LABS: Eosinophils % (auto) 2.3 % (0.0-7.0); Hemoglobin 12.1 g/dL (12.2-16.2); Lymphocytes % (auto) 28.2 % (10.0-50.0); Mean Corpuscular Hemoglobin 25.2 pg (28.0-32.0); Mean Corpuscular Hgb Conc. 31.1 g/dL (32.0-36.0); Neutrophils % (auto) 59.3 % (37.0-80.0); Nucleated Red Blood Cells % 0.3 %; Red Blood Cells 4.81 10^6/uL (4.0-5.20)
[2022-08-03 00:45] LABS: INR 1.29 (0.9-1.15); Partial Thromboplastin Time 28.3 sec (24.6-33.4)
[2022-08-03 00:48] LABS: Albumin 2.8 g/dL (3.4-5.0); Calcium 8.5 mg/dL (8.5-10.1); Magnesium 1.8 mg/dL (1.6-2.6); Potassium 3.4 mmol/L (3.5-5.1)
[2022-08-03 00:53] LABS: BUN/Creatinine Ratio 14.9; Bilirubin, Total 1.3 mg/dL (0.2-1.0); Total Protein 7.5 g/dL (6.4-8.2)
[2022-08-03] MEDS ORDERED: FUROSEMIDE 20 MG/2 ML VIAL IV ONE (01:45)
[2022-08-03] MEDS ORDERED: MORPHINE SULFATE 4 MG/ML SYR/VIAL IV ONE (02:30)
[2022-08-03 03:00] VITALS: BP 116/77
[2022-08-03] MEDS ORDERED: MORPHINE SULFATE INJ 2 MG/ml SYRG IV PRN (03:15)
[2022-08-03] MEDS ORDERED: NITROGLYCERIN 0.4 MG SL TAB SL PRN (03:15)
[2022-08-03] MEDS ORDERED: POTASSIUM CHL 20 Meq TABLET PO ONE (03:15)
[2022-08-03] MEDS ORDERED: ALBUTEROL SULF 2.5 MG/0.5ML(0.5%) NEB SOLN NEB PRN (03:15)
[2022-08-03] MEDS ORDERED: ENOXAPARIN SOD 100 MG/1 ML SYRINGE SC ONE (05:00)
[2022-08-03] MEDS ORDERED: FUROSEMIDE 20 MG/2 ML VIAL IV SCH (06:00)
[2022-08-03 08:06] LABS: Urine Bacteria NONE SEEN /hpf (None Seen); Urine Blood Negative /uL (Negative); Urine Hyaline Cast MOD /lpf (0 - 2); Urine Mucus FEW (None Seen); Urine Specific Gravity 1.024 (1.001-1.035); Urine WBC 3 /hpf (0 - 5)
[2022-08-03] MEDS ORDERED: FUROSEMIDE 40 MG/4 ML VIAL IV ONE (08:30)
[2022-08-03] MEDS ORDERED: PANTOPRAZOLE 40 MG TAB PO SCH (10:00)
[2022-08-03] MEDS ORDERED: ENOXAPARIN SOD 40 MG/0.4 ML SYRINGE SC SCH (10:00)
[2022-08-03] MEDS: ASPirin 81 mg TAB PO SCH (10:00)
[2022-08-03] MEDS: CARVEDILOL 3.125 MG TAB PO SCH ×2 (10:07→22:00)
[2022-08-03] MEDS: MAGNESIUM OXIDE 400 MG TAB PO SCH ×2 (10:07→22:42)
[2022-08-03] MEDS: ONDANSETRON HCL 4 MG/2 ML VIAL IV PRN (10:07)
[2022-08-03] MEDS: ALBUMIN 25% 100 ML IV SCH ×2 (14:10→15:00)
[2022-08-03] MEDS: FUROSEMIDE 40 MG/4 ML VIAL IV SCH (18:00)
[2022-08-03] MEDS: ATORVASTATIN 20 MG TAB PO SCH (22:41)
[2022-08-04] VITALS (9 sets, daily range): BP systolic 91–109; BP diastolic 63–78
[2022-08-04] MEDS: FUROSEMIDE 40 MG/4 ML VIAL IV SCH ×2 (05:32→18:00)
[2022-08-04 06:08] LABS: Basophils # (auto) 0.1 10 ^3/uL (0-0.2); Eosinophils % (auto) 1.1 % (0.0-7.0); Monocytes # (auto) 0.5 10 ^3/uL (0-1.3); Monocytes % (auto) 10.9 % (0.0-12.0); White Blood Cell 4.6 10^3/uL (4.4-10.8)
[2022-08-04 06:14] LABS: Eosinophils # (auto) 0 10 ^3/uL (0-0.8); Hematocrit 38.5 % (36.0-46.0); Hemoglobin 12.3 g/dL (12.2-16.2); Lymphocytes # (auto) 1.3 10 ^3/uL (0.4-5.4); Lymphocytes % (auto) 29.3 % (10.0-50.0); Mean Corpuscular Hemoglobin 25.7 pg (28.0-32.0); Mean Corpuscular Hgb Conc. 31.9 g/dL (32.0-36.0); Mean Corpuscular Volume 80.7 fL (80.0-100.0); Neutrophils # (auto) 2.6 10 ^3/uL (1.6-8.6); Neutrophils % (auto) 56.7 % (37.0-80.0); Nucleated Red Blood Cells % 0.2 %; Red Blood Cells 4.78 10^6/uL (4.0-5.20)
[2022-08-04 06:35] LABS: Potassium 4.7 mmol/L (3.5-5.1)
[2022-08-04 06:50] LABS: Albumin 2.6 g/dL (3.4-5.0); BUN/Creatinine Ratio 17.1; Bilirubin, Total 2.2 mg/dL (0.2-1.0); Total Protein 6.3 g/dL (6.4-8.2)
[2022-08-04] MEDS: ASPirin 81 mg TAB PO SCH (08:54)
[2022-08-04] MEDS: MAGNESIUM OXIDE 400 MG TAB PO SCH ×2 (08:54→22:11)
[2022-08-04] MEDS: CARVEDILOL 3.125 MG TAB PO SCH ×2 (10:00→22:11)
[2022-08-04] MEDS: LACTULOSE 20Gm/30ML SOLN PO SCH ×3 (12:00→23:18)
[2022-08-04] MEDS ORDERED: IODIXANOL 320MG/ML 100ML BTL IV ONE (15:20)
[2022-08-04] MEDS ORDERED: ANGIOMAX 250 MG VIAL IV ONE (15:47)
[2022-08-04] MEDS ORDERED: VERAPAMIL 2.5MG/ML INJ 2ML VIAL IV ONE (15:47)
[2022-08-04] MEDS ORDERED: HEPARIN SODIUM (PORCINE) 5000 UNITS/ML 1ML VIAL ONE (15:47)
[2022-08-04] MEDS ORDERED: fentaNYL CITRATE 100 MCG/2 ML VL ONE (15:48)
[2022-08-04] MEDS ORDERED: SODIUM CHL 0.9% 0 ML ONE (15:48)
[2022-08-04] MEDS ORDERED: MIDAZOLAM HCL 2MG/2ML 2ml VIAL (1mg/ml) ONE (15:48)
[2022-08-04] MEDS: ONDANSETRON HCL 4 MG/2 ML VIAL IV PRN (16:56)
[2022-08-04] MEDS: TEMAZEPAM 15 MG CAP PO PRN (22:10)
[2022-08-04] MEDS: ATORVASTATIN 20 MG TAB PO SCH (22:11)
[2022-08-05 05:00] VITALS: BP 105/75
[2022-08-05] MEDS: LACTULOSE 20Gm/30ML SOLN PO SCH ×3 (06:20→17:49)
[2022-08-05] MEDS: FUROSEMIDE 40 MG/4 ML VIAL IV SCH ×2 (06:20→17:49)
[2022-08-05 08:00] VITALS: BP 111/81
[2022-08-05 09:00] VITALS: BP 111/81
[2022-08-05 09:08] LABS: Hepatitis B Surface Antibody Negative (Negative)
[2022-08-05 09:46] LABS: Hepatitis A Total Antibody Negative (Negative)
[2022-08-05] MEDS: ASPirin 81 mg TAB PO SCH (10:28)
[2022-08-05] MEDS: SACUBITRIL-VALSARTAN 24mg/26mg TAB PO SCH ×2 (10:28→22:00)
[2022-08-05] MEDS: MAGNESIUM OXIDE 400 MG TAB PO SCH ×2 (10:29→22:00)
[2022-08-05] MEDS: CARVEDILOL 3.125 MG TAB PO SCH ×2 (10:30→21:59)
[2022-08-05 11:39] LABS: Hepatitis C Antibody Negative (Negative)
[2022-08-05 13:00] VITALS: BP 109/70
[2022-08-05 17:00] VITALS: BP 107/81
[2022-08-05 22:00] VITALS: BP 103/60
[2022-08-05] MEDS: TEMAZEPAM 15 MG CAP PO PRN (22:00)
[2022-08-05] MEDS: ATORVASTATIN 20 MG TAB PO SCH (22:00)
[2022-08-06] VITALS (7 sets, daily range): BP systolic 86–96; BP diastolic 31–61
[2022-08-06] MEDS: LACTULOSE 20Gm/30ML SOLN PO SCH ×5 (00:10→17:33)
[2022-08-06] MEDS: FUROSEMIDE 40 MG/4 ML VIAL IV SCH ×2 (06:00→17:34)
[2022-08-06] MEDS: ASPirin 81 mg TAB PO SCH (10:45)
[2022-08-06] MEDS: SACUBITRIL-VALSARTAN 24mg/26mg TAB PO SCH ×2 (10:47→21:28)
[2022-08-06] MEDS: CARVEDILOL 3.125 MG TAB PO SCH ×2 (10:47→21:27)
[2022-08-06] MEDS: MAGNESIUM OXIDE 400 MG TAB PO SCH ×2 (10:48→21:28)
[2022-08-06 11:07] LABS: INR 1.29 (0.9-1.15); Partial Thromboplastin Time 28.5 sec (24.6-33.4)
[2022-08-06] MEDS: ATORVASTATIN 20 MG TAB PO SCH (21:26)
[2022-08-06] MEDS: TEMAZEPAM 15 MG CAP PO PRN (21:26)
[2022-08-06] MEDS: ACETAMINOPHEN 500 MG TAB PO PRN (21:28)
[2022-08-07] VITALS (7 sets, daily range): BP systolic 83–140; BP diastolic 53–86
[2022-08-07] MEDS: LACTULOSE 20Gm/30ML SOLN PO SCH ×4 (00:19→18:01)
[2022-08-07] MEDS: FUROSEMIDE 40 MG/4 ML VIAL IV SCH ×2 (05:38→17:05)
[2022-08-07] MEDS ORDERED: ALBUMIN 25% 100 ML IV SCH (09:30)
[2022-08-07] MEDS: CARVEDILOL 3.125 MG TAB PO SCH ×2 (10:00→22:00)
[2022-08-07] MEDS: SACUBITRIL-VALSARTAN 24mg/26mg TAB PO SCH ×2 (10:00→22:00)
[2022-08-07] MEDS: ASPirin 81 mg TAB PO SCH (10:09)
[2022-08-07] MEDS: MAGNESIUM OXIDE 400 MG TAB PO SCH ×2 (10:10→21:52)
[2022-08-07] MEDS: ALBUMIN 25% 50 ML IV SCH ×2 (12:01→21:50)
[2022-08-07 14:48] LABS: Hematocrit 37.1 % (36.0-46.0); Hemoglobin 11.8 g/dL (12.2-16.2); Mean Corpuscular Hemoglobin 26.1 pg (28.0-32.0); Mean Corpuscular Hgb Conc. 31.8 g/dL (32.0-36.0); Red Blood Cells 4.53 10^6/uL (4.0-5.20); Red Cell Distribution Width 19.3 % (11.8-14.3); White Blood Cell 2.9 10^3/uL (4.4-10.8)
[2022-08-07 14:54] LABS: Band Neutrophils % (manual) 0; Basophils % (manual) 0 (0.0-2.0); Blast Cells 0; Metamyelocytes % 0; Myelocytes % 0; Promyelocytes % 0; Reactive Lymphocytes 0
[2022-08-07 15:08] LABS: Albumin 2.2 g/dL (3.4-5.0); Calcium 7.7 mg/dL (8.5-10.1); Potassium 3.5 mmol/L (3.5-5.1)
[2022-08-07 15:10] LABS: BUN/Creatinine Ratio 13.2; Bilirubin, Direct 0.5 mg/dL (0-0.2)
[2022-08-07 15:12] LABS: Bilirubin, Total 0.9 mg/dL (0.2-1.0); Total Protein 5.9 g/dL (6.4-8.2)
[2022-08-07 15:45] LABS: Eosinophils % (manual) 3 (0-7); Lymphocytes % (manual) 26 (10.0-50.0); Monocytes % (manual) 7 (0-12)
[2022-08-07] MEDS: ATORVASTATIN 20 MG TAB PO SCH (21:50)
[2022-08-07] MEDS: TEMAZEPAM 15 MG CAP PO PRN (21:50)
[2022-08-08] VITALS (7 sets, daily range): BP systolic 92–112; BP diastolic 50–70
[2022-08-08] MEDS: FUROSEMIDE 40 MG/4 ML VIAL IV SCH ×2 (05:50→18:00)
[2022-08-08 06:19] LABS: Basophils # (auto) 0 10 ^3/uL (0-0.2); Basophils % (auto) 1.3 % (0.0-2.0); Eosinophils # (auto) 0.1 10 ^3/uL (0-0.8); Eosinophils % (auto) 3.7 % (0.0-7.0); Hematocrit 36.9 % (36.0-46.0); Hemoglobin 11.6 g/dL (12.2-16.2); Lymphocytes # (auto) 0.9 10 ^3/uL (0.4-5.4); Mean Corpuscular Hgb Conc. 31.5 g/dL (32.0-36.0); Mean Corpuscular Volume 82.5 fL (80.0-100.0); Monocytes # (auto) 0.5 10 ^3/uL (0-1.3); Monocytes % (auto) 13.8 % (0.0-12.0); Neutrophils # (auto) 2.1 10 ^3/uL (1.6-8.6); Neutrophils % (auto) 56.2 % (37.0-80.0); Nucleated Red Blood Cells % 0.4 %; Red Blood Cells 4.47 10^6/uL (4.0-5.20); Red Cell Distribution Width 19.6 % (11.8-14.3); White Blood Cell 3.7 10^3/uL (4.4-10.8)
[2022-08-08] MEDS: LACTULOSE 20Gm/30ML SOLN PO SCH ×4 (06:24→18:00)
[2022-08-08 06:30] LABS: Potassium 3.9 mmol/L (3.5-5.1)
[2022-08-08 06:35] LABS: Albumin 2.5 g/dL (3.4-5.0); Calcium 7.9 mg/dL (8.5-10.1); Total Protein 5.9 g/dL (6.4-8.2)
[2022-08-08] MEDS: ACETAMINOPHEN 500 MG TAB PO PRN (08:46)
[2022-08-08] MEDS: ALBUMIN 25% 50 ML IV SCH ×2 (08:48→22:42)
[2022-08-08] MEDS: SACUBITRIL-VALSARTAN 24mg/26mg TAB PO SCH ×2 (08:48→22:33)
[2022-08-08] MEDS: ASPirin 81 mg TAB PO SCH (08:48)
[2022-08-08] MEDS: CARVEDILOL 3.125 MG TAB PO SCH ×2 (08:49→22:35)
[2022-08-08] MEDS: MAGNESIUM OXIDE 400 MG TAB PO SCH ×2 (08:50→22:33)
[2022-08-08] MEDS: ATORVASTATIN 20 MG TAB PO SCH (22:33)
[2022-08-09] VITALS (7 sets, daily range): BP systolic 82–109; BP diastolic 48–72
[2022-08-09] MEDS: LACTULOSE 20Gm/30ML SOLN PO SCH ×4 (05:37→18:00)
[2022-08-09] MEDS: FUROSEMIDE 40 MG/4 ML VIAL IV SCH ×2 (05:40→18:00)
[2022-08-09] MEDS: ONDANSETRON HCL 4 MG/2 ML VIAL IV PRN (05:52)
[2022-08-09 06:43] LABS: Potassium 4.1 mmol/L (3.5-5.1)
[2022-08-09 06:46] LABS: Basophils # (auto) 0.1 10 ^3/uL (0-0.2); Eosinophils # (auto) 0.1 10 ^3/uL (0-0.8); Hemoglobin 11.1 g/dL (12.2-16.2); Monocytes # (auto) 0.4 10 ^3/uL (0-1.3); Red Cell Distribution Width 19.4 % (11.8-14.3); White Blood Cell 3.3 10^3/uL (4.4-10.8)
[2022-08-09 06:50] LABS: Albumin 2.6 g/dL (3.4-5.0); BUN/Creatinine Ratio 19.3; Bilirubin, Total 1.1 mg/dL (0.2-1.0); Total Protein 5.6 g/dL (6.4-8.2)
[2022-08-09 06:52] LABS: Eosinophils % (auto) 3.6 % (0.0-7.0); Hematocrit 35.4 % (36.0-46.0); Lymphocytes # (auto) 0.9 10 ^3/uL (0.4-5.4); Lymphocytes % (auto) 26.8 % (10.0-50.0); Mean Corpuscular Hemoglobin 25.4 pg (28.0-32.0); Mean Corpuscular Hgb Conc. 31.3 g/dL (32.0-36.0); Mean Corpuscular Volume 81.2 fL (80.0-100.0); Monocytes % (auto) 12.9 % (0.0-12.0); Neutrophils # (auto) 1.8 10 ^3/uL (1.6-8.6); Neutrophils % (auto) 54.7 % (37.0-80.0); Nucleated Red Blood Cells % 0.2 %; Red Blood Cells 4.36 10^6/uL (4.0-5.20)
[2022-08-09] MEDS: ALBUMIN 25% 50 ML IV SCH (10:00)
[2022-08-09] MEDS: SACUBITRIL-VALSARTAN 24mg/26mg TAB PO SCH ×2 (11:28→22:15)
[2022-08-09] MEDS: ASPirin 81 mg TAB PO SCH (11:28)
[2022-08-09] MEDS: CARVEDILOL 3.125 MG TAB PO SCH ×2 (11:28→22:15)
[2022-08-09] MEDS: MAGNESIUM OXIDE 400 MG TAB PO SCH ×2 (11:28→22:16)
[2022-08-09 11:39] LABS: INR 1.24 (0.9-1.15); Partial Thromboplastin Time 28.7 sec (24.6-33.4)
[2022-08-09] MEDS: ACETAMINOPHEN 500 MG TAB PO PRN (18:31)
[2022-08-09] MEDS: ALBUMIN 25% 100 ML IV SCH (19:49)
[2022-08-09] MEDS ORDERED: ALBUMIN 25% 100 ML IV SCH (22:00)
[2022-08-09] MEDS: ATORVASTATIN 20 MG TAB PO SCH (22:16)
[2022-08-10] VITALS (7 sets, daily range): BP systolic 92–113; BP diastolic 53–74
[2022-08-10] MEDS: LACTULOSE 20Gm/30ML SOLN PO SCH ×4 (00:19→18:00)
[2022-08-10] MEDS: FUROSEMIDE 40 MG/4 ML VIAL IV SCH ×2 (06:00→18:00)
[2022-08-10] MEDS: ALBUMIN 25% 100 ML IV SCH ×2 (06:09→19:03)
[2022-08-10] MEDS: ONDANSETRON HCL 4 MG/2 ML VIAL IV PRN (06:10)
[2022-08-10 06:44] LABS: Potassium 4.4 mmol/L (3.5-5.1)
[2022-08-10 06:56] LABS: Albumin 2.8 g/dL (3.4-5.0); BUN/Creatinine Ratio 21.1; Bilirubin, Total 1.2 mg/dL (0.2-1.0); Calcium 8.5 mg/dL (8.5-10.1); Total Protein 6.5 g/dL (6.4-8.2)
[2022-08-10 08:19] LABS: Basophils # (auto) 0.1 10 ^3/uL (0-0.2); Basophils % (auto) 2.3 % (0.0-2.0); Eosinophils # (auto) 0.1 10 ^3/uL (0-0.8); Eosinophils % (auto) 3.2 % (0.0-7.0); Hematocrit 38.3 % (36.0-46.0); Hemoglobin 11.8 g/dL (12.2-16.2); Lymphocytes # (auto) 0.9 10 ^3/uL (0.4-5.4); Lymphocytes % (auto) 25.5 % (10.0-50.0); Mean Corpuscular Hemoglobin 25.3 pg (28.0-32.0); Mean Corpuscular Hgb Conc. 30.9 g/dL (32.0-36.0); Mean Corpuscular Volume 82.1 fL (80.0-100.0); Monocytes # (auto) 0.4 10 ^3/uL (0-1.3); Monocytes % (auto) 10.7 % (0.0-12.0); Neutrophils % (auto) 58.3 % (37.0-80.0); Nucleated Red Blood Cells % 0.1 %; Red Blood Cells 4.66 10^6/uL (4.0-5.20); Red Cell Distribution Width 19.4 % (11.8-14.3); White Blood Cell 3.4 10^3/uL (4.4-10.8)
[2022-08-10] MEDS: SACUBITRIL-VALSARTAN 24mg/26mg TAB PO SCH ×2 (10:00→22:00)
[2022-08-10] MEDS: CARVEDILOL 3.125 MG TAB PO SCH ×2 (10:00→22:00)
[2022-08-10] MEDS: MAGNESIUM OXIDE 400 MG TAB PO SCH ×2 (15:00→22:58)
[2022-08-10] MEDS: ASPirin 81 mg TAB PO SCH (15:00)
[2022-08-10] MEDS: ACETAMINOPHEN 500 MG TAB PO PRN (22:58)
[2022-08-10] MEDS: ATORVASTATIN 20 MG TAB PO SCH (22:58)
[2022-08-10] MEDS: TEMAZEPAM 15 MG CAP PO PRN (23:08)
[2022-08-11 05:00] VITALS: BP 100/70
[2022-08-11] MEDS: LACTULOSE 20Gm/30ML SOLN PO SCH ×3 (05:34→13:28)
[2022-08-11] MEDS: ALBUMIN 25% 100 ML IV SCH (05:35)
[2022-08-11] MEDS: FUROSEMIDE 40 MG/4 ML VIAL IV SCH (06:17)
[2022-08-11] MEDS: SACUBITRIL-VALSARTAN 24mg/26mg TAB PO SCH (08:37)
[2022-08-11] MEDS: CARVEDILOL 3.125 MG TAB PO SCH (08:37)
[2022-08-11] MEDS: ASPirin 81 mg TAB PO SCH (08:44)
[2022-08-11] MEDS: MAGNESIUM OXIDE 400 MG TAB PO SCH (08:44)
[2022-08-11 09:00] VITALS: BP 82/47
[2022-08-11] MEDS ORDERED: SACU1TAB PO (09:36)
[2022-08-11] MEDS ORDERED: CARV6.2551 PO (09:36)
[2022-08-11] MEDS ORDERED: TEMA30CA5 PO (09:36)
[2022-08-11 13:00] VITALS: BP 105/73
[2022-08-11 17:00] VITALS: BP 115/79
== END 2022-08-11 18:00 | disposition home health service (06) | DRG 192 ==
LOC: EDBD 23:55 → ER 23:58 → TELE 08-03 03:06 → TELE-CENTR 08-03 21:20
PROVIDERS: ADMIT Nurse Practitioner; ATTEND Family Medicine
PROC: 0W9G3ZZ Drainage of Peritoneal Cavity, Percutaneous Approach (ICD-10-PCS; principal; 2022-08-03)
PROC: 4A023N7 Measurement of Cardiac Sampling and Pressure, Left Heart, Percutaneous Approach (ICD-10-PCS; 2022-08-04)
PROC: B211YZZ Fluoroscopy of Multiple Coronary Arteries using Other Contrast (ICD-10-PCS; 2022-08-04)
PROC: B215YZZ Fluoroscopy of Left Heart using Other Contrast (ICD-10-PCS; 2022-08-04)
PROC: 0W9G30Z Drainage of Peritoneal Cavity with Drainage Device, Percutaneous Approach (ICD-10-PCS; 2022-08-10)
DX: I11.0 Hypertensive heart disease with heart failure (principal); E43 Unspecified severe protein-calorie malnutrition; R18.8 Other ascites; I42.0 Dilated cardiomyopathy; I95.9 Hypotension, unspecified; I50.23 Acute on chronic systolic (congestive) heart failure; K74.60 Unspecified cirrhosis of liver; F41.9 Anxiety disorder, unspecified; E66.01 Morbid (severe) obesity due to excess calories; Z20.822 Contact with and (suspected) exposure to COVID-19; I37.1 Nonrheumatic pulmonary valve insufficiency; Z68.32 Body mass index [BMI] 32.0-32.9, adult; Z79.899 Other long term (current) drug therapy; Z82.3 Family history of stroke; Z82.49 Family history of ischemic heart disease and other diseases of the circulatory system; Z83.3 Family history of diabetes mellitus; Z87.891 Personal history of nicotine dependence; Z91.14 Patient's other noncompliance with medication regimen; Z95.810 Presence of automatic (implantable) cardiac defibrillator
CPT/HCPCS: 36415; 71045; 76705; 76942; 80053; 80076; 81001; 82105; 82140; 83615; 83735; 83880; 83986; 84484; 85007; 85025; 85027; 85610; 85730; 86704; 86706; 86708; 86803; 87205; 87340; 87426; 89051; 93005; 93306; 93458; 96372; 96374; 96375; 96376; 99152; 99291; G0378; J2250; J2405; P9047; Q9967